=== PATIENT | female | born 1950 | race Caucasian/White ===

== ENCOUNTER → 2016-05-22 | Outpatient (CLI) | payer OTHER ==
[~2016-05-22] MED LIST: EXCEDRIN EXTRA STREN PO; NICODERM C21 MG/24 H TOP; NORCO1 TA1 PO; TRAMADOL HCL50 MG PO; VISTARIL25 MG PO
--- NOTE | 2016-05-22 12:56 | DIAGNOSTIC IMAGING REPORT ---
PROCEDURE: CT THORAX ABD PELVIS W/CONT INDICATION: LUNG CA, follow-up TECHNIQUE: 75 ml of Isovue 300 injected intravenously and axial images were obtained of the entire thorax, abdomen, and pelvis with sagittal and coronal reformations. COMPARISON: CT chest/abdomen/pelvis 02/17/2016 FINDINGS: THORAX: Hyperinflation with moderate emphysema. Right upper lobectomy with stable right hemithorax volume loss. Stable left major fissure focal thickening. Progression of the right paratracheal lymph node which measures 2.5 cm short axis (previously 2 cm ). No effusion. Minor coronary atherosclerosis. Heart size is normal. No pericardial effusion. Mild degenerative changes of the spine. ABDOMEN: Stable mild dilation of the common bile duct (7 mm) and pancreatic duct, without evidence of a distal calculus, mass or inflammatory changes. Liver gallbladder, spleen, adrenal glands and kidneys are normal. Moderate atherosclerosis of the aorta. Moderate diverticulosis of the transverse and descending colon. Severe levoconvex scoliosis with severe degenerative changes of the spine. PELVIS: Moderate sigmoid diverticulosis. Normal appendix. Uterus, adnexa and bladder are unremarkable. Stable fat-containing right femoral hernia. No change in the bilobed right pelvic cystic mass measuring approximate 3.1 x 2.3 x 1.9 cm. Immediately caudal, there is a stable 4.3 x 2 cm right pelvic sidewall/ extra iliac chain lymph node. Right hip ORIF through pathological fracture with evidence of healing but fracture line is still visible. No evidence of increased bony destruction. IMPRESSION: 1. Right upper lobectomy with progression of right paratracheal adenopathy 2. Diverticulosis 3. Stable right pelvic cystic mass and the right pelvic adenopathy 4. Stable right femoral fat-containing hernia 5. Right hip ORIF through pathological fracture with evidence of healing and no evidence of increased osseous destruction. All CT scans at this facility use dose modulation, iterative reconstruction, and/or weight-based dosing when appropriate to reduce radiation dose to as low as reasonably achievable.
--- NOTE | 2016-05-22 13:36 | DIAGNOSTIC IMAGING REPORT ---
PROCEDURE: CT LOWER EXT W/CONTRAST-RIGHT INDICATION: LUNG CA TECHNIQUE: Axial scans with coronal and sagittal re-formations. COMPARISON: CT chest/abdomen/pelvis 02/17/2016 FINDINGS: Right hip ORIF with intramedullary nail and two DHS screws through a pathological fracture. There is some healing present but fracture line is still visible. No evidence of increased bony destruction. Mild bilateral hip degenerative changes. Fat-containing right femoral hernia is stable. Partially visualized right pelvic cystic mass with stable right pelvic wall mass/ adenopathy. IMPRESSION: 1. Right hip ORIF through pathological fracture. Evidence of healing but fracture line is still present. No evidence of increased osseous destruction.
== END ==
LOC: CT SRH 11:29
DX: J43.9 Emphysema, unspecified (principal); R59.9 Enlarged lymph nodes, unspecified; K57.30 Diverticulosis of large intestine without perforation or abscess without bleeding; Z85.118 Personal history of other malignant neoplasm of bronchus and lung; Z98.890 Other specified postprocedural states

== ENCOUNTER 2016-05-23 08:40 | Outpatient (CLI) | payer OTHER ==
--- NOTE | 2016-05-23 10:40 | DIAGNOSTIC IMAGING REPORT ---
PROCEDURE: MR BRAIN W/WO CONTRAST INDICATION: LUNG CA TECHNIQUE: Multiplanar multisequence MRI imaging of the brain without contrast. Post administration of 13 ml ProHance gadolinium based IV contrast, three plane T1 fat sat sequences were obtained. COMPARISON: None available FINDINGS: The midline structures are normally formed. The ventricular system is normal in size. Basal cisterns are patent. Flow voids in the major intracranial vessels are normal. No vascular malformations seen post contrast. Signal throughout the pratt and white matter demonstrates a few scattered areas of increased signal which probably represents small vessel ischemic disease. There is a focal area of hemosiderin deposition in the left occipital lobe which probably represents a cavernous malformation. No restricted diffusion to suggest acute ischemia. No evidence of acute or chronic intraparenchymal or extra-axial hemorrhage. No mass, mass effect, or midline shift. No suspicious enhancement. Normal signal in the visible bones. The sinuses are normally aerated. Visible extracranial soft tissues including the orbits are normal. IMPRESSION: 1. Small-vessel ischemic disease and a left occipital cavernous malformation. 2. No abnormal enhancement.
== END 2016-05-23 23:00 ==
LOC: MRI SRH 08:40
DX: C34.90 Malignant neoplasm of unspecified part of unspecified bronchus or lung (principal); G93.89 Other specified disorders of brain

== ENCOUNTER 2016-06-20 10:25 | Emergency (ER) | payer OTHER ==
--- NOTE | 2016-06-20 13:41 | DIAGNOSTIC IMAGING REPORT ---
PROCEDURE: CT ABD/PELVIS WITH CONTRAST CLINICAL INDICATION: Left lower quadrant pain TECHNIQUE: 100 ml of Isovue 300 were injected intravenously and axial images were obtained of the entire abdomen and pelvis with sagittal and coronal reformations. COMPARISON: CT chest/abdomen/pelvis 05/22/2016 FINDINGS: ABDOMEN: Lung bases are clear. Heart size is normal. Stable common bile duct at the upper limits of normal, 7 mm. Stable dilation of the pancreatic, 3 mm. No evidence of a pancreatic mass, inflammatory process or distal calculus. Liver, gallbladder, spleen, adrenal glands and the kidneys are normal. Moderate atherosclerosis of the aorta. Moderate diverticulosis of the transverse and descending colon. Nonspecific bowel gas pattern. Severe levoconvex scoliosis with degenerative changes. PELVIS: Normal appendix. Moderate sigmoid diverticulosis with wall thickening and minor adjacent inflammatory changes of the proximal sigmoid colon consistent with diverticulitis. There is no of free air or abscess. The uterus and bladder are unremarkable. Right hip ORIF. Stable fat-containing right femoral hernia. Stable 2.3 x 1.9 cm right pelvic cystic mass and slight progression of 4.5 x 2.3 cm right external iliac chain lymph node. IMPRESSION: 1. Moderate diverticulosis from the transverse to the sigmoid colon with findings suggestive of diverticulitis of the proximal sigmoid colon. No abscess or free air. 2. Stable right pelvic cystic mass but slight progression of right external iliac adenopathy. Recommend pelvic ultrasound 3. Stable fat-containing right femoral hernia 4. Right hip ORIF 5. Results discussed with Dr. Mckeon All CT scans at this facility use dose modulation, iterative reconstruction, and/or weight-based dosing when appropriate to reduce radiation dose to as low as reasonably achievable.
--- NOTE | 2016-06-20 14:37 | ED NURSING NOTES ---
Clinical Report - Nurses [facility] [address] [place] [place] [address] 06/20/2016 10:25 [id number] Triage time 10:36. Acuity: LEVEL 3. Chief Complaint: ABDOMINAL PAIN. Alert. No acute distress. GRACE COMA SCORE: Grace Coma Scale: 15- eyes open spontaneously (4); best verbal response- oriented x 4 (5); best motor response- obeys commands (6). --10:43 Janet Jackson R.N. 10:36 06/20/16. BP: 120/88. HR: 99. RR: 18. O2 saturation: 99% on room air. Temp: 98.5 F (oral). --10:43 Janet Jackson R.N. Weight: 58.5 kg stated. Height/Length: 62 inches Per Patient. BMI: 23.6. --10:43 Janet Jackson R.N. Medications TraMADol HCl Oral. --10:38 Janet Jackson R.N. Excedrin Extra Strength Oral. --10:38 Janet Jackson R.N. Medication/allergy information source: the patient. --10:43 Janet Jackson R.N. Allergies STEROIDS. --10:38 Janet Jackson R.N. History Arrived by private vehicle. Historian: patient. Unaccompanied. Primary physician (Lashanda). Onset. (3 days). Describes the quality as cramping and ( intermittent). Relates location as in the left abdomen. SOCIAL HX: Light tobacco smoker- less than 1/2 a pack per day. No alcohol use or drug use. FALL RISK ASSESSMENT: Fall risk assessment completed. No fall risk identified. FUNCTIONAL ASSESSMENT: Functional assessment: no impairments noted. LEARNING NEEDS ASSESSMENT: The learning needs assessment revealed no barriers. --10:43 Janet Jackson R.N. PROBLEMS: Cancer. Diverticulosis. Diverticulitis. --10:40 Janet Jackson R.N. ADDITIONAL SURGERIES: Leg. Lobectomy of lung. --10:42 Janet Jackson R.N. Assessment GENERAL / NEURO / PSYCH: Alert. Oriented X 4. Appears in no acute distress. Patient appears calm and cooperative. RESPIRATORY: Respirations not labored. SKIN: Skin is warm and dry. --10:43 Janet Jackson R.N. Interventions ID band on patient. To treatment room. --10:43 Janet Jackson R.N. PHYSICAL ASSESSMENT 10:44 06/20/16. Ambulatory to room. Patient gowned. GENERAL / NEURO / PSYCH: Alert. Oriented X 4. Appears in no acute distress. RESPIRATORY: Respirations not labored. SKIN: Skin is warm and dry. --10:44 Janet Jackson R.N. NURSING PROGRESS NOTES 10:44 06/20/16. Patient gowned. Head of bed elevated. Call light placed in reach. Side rails up x 1. Bed placed in lowest position. Brakes of bed on. --10:44 Janet Jackson R.N. 11:08 06/20/2016 Site #1 started via IV in the right hand with an 20g angiocath, with aseptic technique and good blood return; one attempt. Saline lock flushed with 10 mL saline. --11:18 Janet Jackson R.N. Checked patient name and birthdate: patient confirmed. Blood samples drawn from the left antecubital space with syringe and 23g butterfly by tech per protocol ; labeled in presence of the patient and sent to lab: rainbow set: cardiac enzymes (1st set). --11:20 Casimiro Hewtit 12:50. :patient confirmed. Clean catch urine collected; sample sent to lab. Specimen labeled in the presence of the patient (pt ambulated to the BR and back without difficulty, more urine sent to lab). --12:51 Janet Jackson R.N. 13:54 06/20/2016 Flagyl (MetroNIDAZOLE) PO Tablets 500 mg given. Allergies verified and confirmed 5 rights. --13:54 Janet Jackson R.N. 13:54 06/20/2016 Levofloxacin PO Tablets 500 mg given. Allergies verified and confirmed 5 rights. --13:54 Janet Jackson R.N. Patient walked to CT. Patient walked back to ED from CT with tech. --13:55 Janet Jackson R.N. Reassessment after procedure. She is calm and resting quietly. Overall patient status is the same- she states feels the same. SKIN: Skin is warm and dry. --13:56 Janet Jackson R.N. 13:56 06/20/16. BP: 128/84. HR: 87. RR: 16. O2 saturation: 97% on room air. Pain level now: 07/07. --13:56 Janet Jackson R.N. The patient is sleeping. --14:29 Ramone Walter R.N. 14:55. The patient is calm and resting quietly. Overall patient status is the same- she states feels the same. SKIN: Skin is warm and dry. --15:46 Janet Jackson R.N. DISPOSITION / DISCHARGE Departure time: 1455. Condition at departure: improved and stable. No learning barriers present. Discharge instructions provided and reviewed with the patient. Patient verbalized understanding. Written instructions provided in [employer]. ( Rx for Levaquin and Flagyl called to [facility] as requested by pt). The patient was discharged home and unaccompanied at time of discharge. She left the Emergency Department ambulatory and via private vehicle. Patient driving. FALL RISK ASSESSMENT: Fall risk assessment completed. No fall risk identified. --15:45 Janet Jackson R.N. 14:58 06/20/16. BP: 126/76. HR: 89. RR: 16. O2 saturation: 99% on room air. Pain level now: 07/07. --15:45 Janet Jackson R.N. 14:55 06/20/2016 Site #1 removed upon discharge. Catheter intact. Bandaid applied. --15:45 Janet Jackson R.N. Locked/Released at 06/20/2016 15:48 by Janet Jackson R.N.
--- NOTE | 2016-06-20 14:37 | ED ORDER SUMMARY ---
..... Patient: MARIA C ORO OrderSheet [facility] VisitID: [id number] [place] [address] 66y, F Registration Date/Time: 06/20/2016 ORDER SHEET Weight: 58.5 kg (stated) Allergies: STEROIDS GENERAL ORDERS: CBC w Diff Urgent (11:13 06/20/2016 José Miguel Agustin) (Ack 11:14 Kd) (11:19 Aubree R.N.) CMP Urgent (11:13 06/20/2016 José Miguel Agustin) (Ack 11:14 Kd) (11:19 Aubree R.N.) UA-Culture if indicated Urgent (11:13 06/20/2016 José Miguel Agustin) (Ack 11:14 Kd) (13:54 Aubree R.N.) Amylase Urgent (11:06/20/2016 José Miguel Agustin) (Ack 11:14 Kd) (11:19 Aubree R.N.) Lipase Urgent (11:13 06/20/2016 José Miguel Agustin) (Ack 11:14 Kd) (11:19 Aubree R.N.) CT Abd/Pel w Cont (No) (12/0.7) Urgent (12:36 06/20/2016 José Miguel Agustin) (Ack 12:39 LNations ER Tech1) (13:05 Kd) MEDICATION ORDERS: Flagyl PO 500 mg (NOW) (13:40 06/20/2016 José Miguel Agustin) (Ack 13:48 Aubree R.N.) (13:54 Aubree R.N.) Levofloxacin PO 500 mg (NOW) (13:40 06/20/2016 José Miguel Agustin) (Ack 13:48 Aubree R.N.) (13:54 Aubree R.N.) IV FLUIDS: IV Saline Lock (11:13 06/20/2016 José Miguel Agustin) (11:18 Aubree R.N.) ORDER SHEET NOTES: [Electronically signed by Robert Mckeon Dr. (14:45 06/20/2016)] [Electronically signed by Janet Jackson R.N. (15:48 06/20/2016)] [Electronically locked/signed by Janet Jackson R.N. (15:48 06/20/2016)]
--- NOTE | 2016-06-20 14:37 | ED CLINICAL REPORT ---
Clinical Report - Physicians/Mid Levels [facility] [address] [place] [address] 06/20/2016 10:25 Patient: MARIA C ORO Time Seen: 11:03; initial patient contact. Arrived- By private vehicle. Historian- patient. HISTORY OF PRESENT ILLNESS Chief Complaint: ABDOMINAL PAIN. At its maximum, severity described as moderate. When seen in the E.D., severity described as mild. It is described as cramping. No radiation. It is described as located in the left lower quadrant. This started about 3 days ago and is still present. It was gradual in onset. No nausea, loss of appetite, vomiting or diarrhea. Similar symptoms previously: Several times. Recent medical care: Not recently seen/assessed. REVIEW OF SYSTEMS The patient has had constipation. No difficulty with urination, pain with urination, urinary frequency, bloody stools or fever. No chills. All systems otherwise negative, except as recorded above. PAST HISTORY Cancer. Diverticulosis. Diverticulitis. SURGERIES: Leg. Lobectomy of lung. SOCIAL HISTORY Current every day smoker. No alcohol use or drug use. ADDITIONAL NOTES The nursing notes have been reviewed with agreement regarding the chief complaint, PMH and patient medications and allergies. PHYSICAL EXAM Appearance: Alert. Oriented X3. No acute distress. ENT: Pharynx normal. CVS: Normal heart rate and rhythm. Heart sounds normal. Respiratory: No respiratory distress. Breath sounds normal. Abdomen: Soft. Mild tenderness in the left lower quadrant with guarding present. No rebound tenderness. Bowel sounds normal. No organomegaly. No mass. Back: Normal inspection. No CVA tenderness. Skin: Normal skin color. No rash. Extremities: No lower extremity edema. Neuro: Oriented X 3. LABS, X-RAYS, AND EKG Abdominal CT: 1. Moderate diverticulosis from the transverse to the sigmoid colon with findings suggestive of diverticulitis of the proximal sigmoid colon. No abscess or free air. 2. Stable right pelvic cystic mass but slight progression of right external iliac adenopathy. Recommend pelvic ultrasound 3. Stable fat-containing right femoral hernia 4. Right hip ORIF. Study type: abdomen and pelvis. Abdominal CT performed with IV contrast. The study was interpreted by the radiologist and discussed with the radiologist. Interpretation time: 13:41. Laboratory Tests: UA-Culture if indicated: (NATHAN: 06/20/2016 10:45) ( [facility] [place] 06/[place] 12:11) Final results Test Result Flag Units (Reference) URINE COLOR YELLOW URINE APPEARANCE SL CLOUDY URINE GLUCOSE TRACE (NEGATIVE) URINE BILIRUBIN 1+ (NEGATIVE) URINE BILIRUBIN ICTOTEST POSITIVE (NEGATIVE) URINE KETONE TRACE (NEGATIVE) URINE SPECIFIC GRAVITY 1.025 (1.010-1.030) URINE PH 5.5 (5.0-8.0) URINE PROTEIN 2+ (NEGATIVE) URINE UROBILINOGEN 1.0 EU/dL (0.2-1.0) URINE NITRITE NEGATIVE (NEGATIVE) URINE BLOOD TRACE-LYSED (NEGATIVE) URINE LEUK ESTERASE POSITIVE (NEGATIVE) URINE RBC 0-1 rbc/hpf (0-1) URINE WBC 15-25 wbc/hpf (0-1) URINE EPITHELIAL CELLS 5-10 EPI/hpf (0-5) URINE BACTERIA TRACE (<1+) (NONE SEEN) URINE COMMENT CULTURE INDICATED UNSPUN MICROSCOPICURINE CULTURES ARE SET-UP BASED ON THE FOLLOWING CRITERIA:POSITIVE NITRITEPOSITIVE LEUKOCYTE ESTERASEGREATER THAN 10 WHITE BLOOD CELLSMODERATE (2+) OR GREATER BACTERIA CBC w Diff: (NATHAN: 06/20/2016 11:17) ( [facility] [place] [place] 06/20/2016 11:31) Final results Test Result Flag Units (Reference) WHITE BLOOD COUNT 8.6 K/uL (4.5-11.5) RED BLOOD COUNT 4.48 M/uL (4.00-5.20) HEMOGLOBIN 12.4 gm/dL (12.0-16.0) HEMATOCRIT 37.7 % (36.0-46.0) MEAN CELL VOLUME 84 fL (80-100) MEAN CORPUSCULAR HGB 28 pg (26-34) MEAN CORPUSCULAR HGB CONC 33 g/dL (31-37) RED CELL DISTRIBUTION WIDTH 18.3 H % (11.6-14.8) PLATELET COUNT 328 K/uL (150-400) NEUTROPHIL % 70.8 % (50-75) LYMPH % 16.6 L % (25-40) MONO % 9.5 % (3-14) EOSINOPHIL % 2.2 % (0-4) BASOPHIL % 0.9 % (0-2) CMP: (NATHAN: 06/20/2016 11:17) ( MsgRcvd 06/20/2016 11:41) Final results Test Result Flag Units (Reference) GLUCOSE 91 mg/dL (70-110) BUN 12 mg/dL (7-18) CREATININE 0.7 mg/dL (0.6-1.3) Estimated GFR >60 mL/min Estimated GFR- >60 mL/min Note: Persistent reduction over 3 months in eGFR<60 mL/min/1.73 m2 defines CKD. Patients with eGFR values>=60 mL/min/1.73 m2 may also have CKD if evidence ofpersistent proteinuria. Additional information may be foundat www.[email or web address].org. SODIUM 142 mmol/L (136-145) POTASSIUM 3.8 mmol/L (3.5-5.1) CHLORIDE 105 mmol/L (98-107) CARBON DIOXIDE 24 mmol/L (21-32) CALCIUM 8.7 mg/dL (8.5-10.1) TOTAL PROTEIN 7.2 g/dL (6.4-8.2) ALBUMIN 2.8 L g/dL (3.3-5.0) BILIRUBIN, TOTAL 0.4 mg/dL (0.0-1.0) ALKALINE PHOSPHATASE 122 H U/L (46-116) AST (SGOT) 13 L U/L (15-37) ALT (SGPT) 10 L U/L (12-78) LIPASE 95 U/L (73-393) AMYLASE 51 U/L (25-115) . PROGRESS AND PROCEDURES Disposition: Discharged home in good and improved condition. Condition: good. CLINICAL IMPRESSION Acute diverticulitis of the colon. No perforation, bleeding or abscess. INSTRUCTIONS Drink plenty of fluids. Your Current Medications: CONTINUE TAKING THE FOLLOWING MEDICATIONS: Excedrin Extra Strength Oral. TraMADol HCl Oral. Prescription Medications: Levaquin 500 mg: take 1 tab orally every day for 6 days. No refills. Substitution is permissible. (Start on 06/21/16) Flagyl 500 mg: Take 1 tablet orally every 8 hours for 7 days. No refill. Substitution is permissible Follow-up: Follow up with your doctor in about two days. Call for an appointment. Screening today revealed the patient's blood pressure to be in the pre-hypertensive range. The patient should follow up with a primary care provider for blood pressure management. (Electronically signed by Robert Mckeon Dr. 06/20/2016 14:45)
--- NOTE | 2016-06-20 14:37 | ED NURSING NOTES ---
Clinical Report - Nurses [facility] [address] [place] [address] 06/20/2016 10:25 [id number] Triage time 10:36. Acuity: LEVEL 3. Chief Complaint: ABDOMINAL PAIN. Alert. No acute distress. GRACE COMA SCORE: Grace Coma Scale: 15- eyes open spontaneously (4); best verbal response- oriented x 4 (5); best motor response- obeys commands (6). --10:43 Janet Jackson R.N. 10:36 06/20/16. BP: 120/88. HR: 99. RR: 18. O2 saturation: 99% on room air. Temp: 98.5 F (oral). --10:43 Janet Jackson R.N. Weight: 58.5 kg stated. Height/Length: 62 inches Per Patient. BMI: 23.6. --10:43 Janet Jackson R.N. Medications TraMADol HCl Oral. --10:38 Janet Jackson R.N. Excedrin Extra Strength Oral. --10:38 Janet Jackson R.N. Medication/allergy information source: the patient. --10:43 Janet Jackson R.N. Allergies STEROIDS. --10:38 Janet Jackson R.N. History Arrived by private vehicle. Historian: patient. Unaccompanied. Primary physician (Lashanda). Onset. (3 days). Describes the quality as cramping and ( intermittent). Relates location as in the left abdomen. SOCIAL HX: Light tobacco smoker- less than 1/2 a pack per day. No alcohol use or drug use. FALL RISK ASSESSMENT: Fall risk assessment completed. No fall risk identified. FUNCTIONAL ASSESSMENT: Functional assessment: no impairments noted. LEARNING NEEDS ASSESSMENT: The learning needs assessment revealed no barriers. --10:43 Janet Jackson R.N. PROBLEMS: Cancer. Diverticulosis. Diverticulitis. --10:40 Janet Jackson R.N. ADDITIONAL SURGERIES: Leg. Lobectomy of lung. --10:42 Janet Jackson R.N. Assessment GENERAL / NEURO / PSYCH: Alert. Oriented X 4. Appears in no acute distress. Patient appears calm and cooperative. RESPIRATORY: Respirations not labored. SKIN: Skin is warm and dry. --10:43 Janet Jackson R.N. Interventions ID band on patient. To treatment room. --10:43 Janet Jackson R.N. PHYSICAL ASSESSMENT 10:44 06/20/16. Ambulatory to room. Patient gowned. GENERAL / NEURO / PSYCH: Alert. Oriented X 4. Appears in no acute distress. RESPIRATORY: Respirations not labored. SKIN: Skin is warm and dry. --10:44 Janet Jackson R.N. NURSING PROGRESS NOTES 10:44 06/20/16. Patient gowned. Head of bed elevated. Call light placed in reach. Side rails up x 1. Bed placed in lowest position. Brakes of bed on. --10:44 Janet Jackson R.N. 11:08 06/20/2016 Site #1 started via IV in the right hand with an 20g angiocath, with aseptic technique and good blood return; one attempt. Saline lock flushed with 10 mL saline. --11:18 Janet Jackson R.N. Checked patient name and birthdate: patient confirmed. Blood samples drawn from the left antecubital space with syringe and 23g butterfly by tech per protocol ; labeled in presence of the patient and sent to lab: rainbow set: cardiac enzymes (1st set). --11:20 Casimiro Hewitt 12:50. :patient confirmed. Clean catch urine collected; sample sent to lab. Specimen labeled in the presence of the patient (pt ambulated to the BR and back without difficulty, more urine sent to lab). --12:51 Janet Jackson R.N. 13:54 06/20/2016 Flagyl (MetroNIDAZOLE) PO Tablets 500 mg given. Allergies verified and confirmed 5 rights. --13:54 Janet Jackson R.N. 13:54 06/20/2016 Levofloxacin PO Tablets 500 mg given. Allergies verified and confirmed 5 rights. --13:54 Janet Jackson R.N. Patient walked to CT. Patient walked back to ED from CT with tech. --13:55 Janet Jackson R.N. Reassessment after procedure. She is calm and resting quietly. Overall patient status is the same- she states feels the same. SKIN: Skin is warm and dry. --13:56 Janet Jackson R.N. 13:56 06/20/16. BP: 128/84. HR: 87. RR: 16. O2 saturation: 97% on room air. Pain level now: 07/07. --13:56 Janet Jackson R.N. The patient is sleeping. --14:29 Ramone Walter R.N. 14:55. The patient is calm and resting quietly. Overall patient status is the same- she states feels the same. SKIN: Skin is warm and dry. --15:46 Janet Jackson R.N. DISPOSITION / DISCHARGE Departure time: 1455. Condition at departure: improved and stable. No learning barriers present. Discharge instructions provided and reviewed with the patient. Patient verbalized understanding. Written instructions provided in [place]. ( Rx for Levaquin and Flagyl called to [facility] as requested by pt). The patient was discharged home and unaccompanied at time of discharge. She left the Emergency Department ambulatory and via private vehicle. Patient driving. FALL RISK ASSESSMENT: Fall risk assessment completed. No fall risk identified. --15:45 Janet Jackson R.N. 14:58 06/20/16. BP: 126/76. HR: 89. RR: 16. O2 saturation: 99% on room air. Pain level now: 07/07. --15:45 Janet Jackson R.N. 14:55 06/20/2016 Site #1 removed upon discharge. Catheter intact. Bandaid applied. --15:45 Janet Jackson R.N. Locked/Released at 06/20/2016 15:48 by Janet Jackson R.N.
--- NOTE | 2016-06-20 14:37 | ED ORDER SUMMARY ---
..... Patient: MARIA C ORO OrderSheet [facility] VisitID: [id number] [place] [address] 66y, F Registration Date/Time: 06/20/2016 ORDER SHEET Weight: 58.5 kg (stated) Allergies: STEROIDS GENERAL ORDERS: CBC w Diff Urgent (11:13 06/20/2016 José Miguel Agustin) (Ack 11:14 Kd) (11:19 Aubree R.N.) CMP Urgent (11:13 06/20/2016 José Miguel Agustin) (Ack 11:14 Kd) (11:19 Aubree R.N.) UA-Culture if indicated Urgent (11:13 06/20/2016 José Miguel Agustin) (Ack 11:14 Kd) (13:54 Aubree R.N.) Amylase Urgent (11:06/20/2016 José Miguel Agustin) (Ack 11:14 Kd) (11:19 Aubree R.N.) Lipase Urgent (11:13 06/20/2016 José Miguel Agustin) (Ack 11:14 Kd) (11:19 Aubree R.N.) CT Abd/Pel w Cont (No) (12/0.7) Urgent (12:36 06/20/2016 José Miguel Agustin) (Ack 12:39 LNations ER Tech1) (13:05 Kd) MEDICATION ORDERS: Flagyl PO 500 mg (NOW) (13:40 06/20/2016 José Miguel Agustin) (Ack 13:48 Aubree R.N.) (13:54 Aubree R.N.) Levofloxacin PO 500 mg (NOW) (13:40 06/20/2016 José Miguel Agustin) (Ack 13:48 Aubree R.N.) (13:54 Aubree R.N.) IV FLUIDS: IV Saline Lock (11:13 06/20/2016 José Miguel Agustin) (11:18 Aubree R.N.) ORDER SHEET NOTES: [Electronically signed by Robert Mckeon Dr. (14:45 06/20/2016)] [Electronically signed by Janet Jackson R.N. (15:48 06/20/2016)] [Electronically locked/signed by Janet Jackson R.N. (15:48 06/20/2016)]
--- NOTE | 2016-06-20 15:48 | ED DISCHARGE INSTRUCTIONS ---
Patient: MARIA C ORO General Instructions [facility] VisitID: [id number] [place] [address] 66y, F Registration Date/Time: 06/20/2016 Acute diverticulitis of the colon. No perforation, bleeding or abscess. INSTRUCTIONS Drink plenty of fluids. Your Current Medications: CONTINUE TAKING THE FOLLOWING MEDICATIONS: Excedrin Extra Strength Oral. TraMADol HCl Oral. Prescription Medications: Levaquin 500 mg: take 1 tab orally every day for 6 days. No refills. Substitution is permissible. (Start on 06/21/16) Flagyl 500 mg: Take 1 tablet orally every 8 hours for 7 days. No refill. Substitution is permissible Follow-up: Follow up with your doctor in about two days. Call for an appointment. Screening today revealed the patient's blood pressure to be in the pre-hypertensive range. The patient should follow up with a primary care provider for blood pressure management. ADDITIONAL INFORMATION Diverticulitis Some people develop pouches along the wall of the colon as they get older. The pouches,called diverticuli, usually cause no symptoms. If the pouches become blocked, an infection may occur known as diverticulitis. This causes lower abdominal pain and fever. If not treated, it can become a serious condition, causing an abscess to form inside the pouch. The abscess may block the instestinal tract even or rupture, spreading infection throughout the abdomen. When treatment is started early, oral antibiotics alone may be enough to cure diverticulitis. This method is tried first. However, if you do not improve or if your condition worsens while you are trying oral antibiotics, it will be necessary to admit you to the hospital for IV antibiotics. Severe cases may require surgery. Home care The following guidelines will help you care for your diverticulitis at home: During the acute illness, rest and follow a low-fiber diet: Foods to Include: flake cereal, mashed potatoes, pancakes, waffles, pasta, white bread, rice, applesauce, bananas, eggs, meat, fish, poultry, tofu, cooked vegetables. Take antibiotics exactly as directed. Do not miss any doses or stop taking the medication, even if you feel better. Monitor your temperature and report any rising temperature to your doctor. Preventing future attacks Once you have had an episode of diverticulitis, you are at risk of having a recurrence. After you have recovered from this episode, you may be able to reduce your risk by eating a high-fiber diet (2035 gm/day of fiber). This cleans out the colon pouches that already exist and prevent new ones from forming. Foods high in fiber includes fresh fruits and edible peelings, raw or lightly cooked vegetables, whole grain cereals and breads, dried beans and peas, bran. Follow-up care Follow up with your doctor as advised or sooner if you are not improving in the nexttwo days. When to seek medical care Get prompt medical attention if any of the following occur: Fever of 100.4F (38C) or higher, or as directed by your health care provider Repeated vomiting or swelling of the abdomen Weakness, dizziness, light-headedness Increasing abdominal pain that becomes severe or spreads to your back Pain that moves to the right lower abdomen Rectal bleeding (red, black or maroon color of the stools) Unexpected vaginal bleeding Levofloxacin Oral tablet What is this medicine? LEVOFLOXACIN (cash espino) is a quinolone antibiotic. It is used to treat certain kinds of bacterial infections. It will not work for colds, flu, or other viral infections. How should I use this medicine? Take this medicine by mouth with a full glass of water. Follow the directions on the prescription label. This medicine can be taken with or without food. Take your medicine at regular intervals. Do not take your medicine more often than directed. Do not skip doses or stop your medicine early even if you feel better. Do not stop taking except on your doctor's advice. A special MedGuide will be given to you by the pharmacist with each prescription and refill. Be sure to read this information carefully each time. Talk to your lunch truck driver regarding the use of this medicine in children. While this drug may be prescribed for children as young as 6 months for selected conditions, precautions do apply. What side effects may I notice from receiving this medicine? Side effects that you should report to your doctor or health palliative care nurse practitioner as soon as possible: -allergic reactions like skin rash or hives, swelling of the face, lips, or tongue -changes in vision -confusion, nightmares or hallucinations -difficulty breathing -irregular heartbeat, chest pain -joint, muscle or tendon pain -pain or difficulty passing urine -persistent headache with or without blurred vision -redness, blistering, peeling or loosening of the skin, including inside the mouth -seizures -unusual pain, numbness, tingling, or weakness -vaginal irritation, discharge Side effects that usually do not require medical attention (report to your doctor or health palliative care nurse practitioner if they continue or are bothersome): -diarrhea -dry mouth -headache -stomach upset, nausea -trouble sleeping What may interact with this medicine? Do not take this medicine with any of the following medications: - arsenic trioxide - chloroquine - droperidol - medicines for irregular heart rhythm like amiodarone, disopyramide, dofetilide, flecainide, quinidine, procainamide, sotalol - some medicines for depression or mental problems like phenothiazines, pimozide, and ziprasidone This medicine may also interact with the following medications: - amoxapine -antacids - cisapride - dairy products - didanosine (ddI) buffered tablets or powder - haloperidol - multivitamins -NSAIDS, medicines for pain and inflammation, like ibuprofen or naproxen - retinoid products like tretinoin or isotretinoin - risperidone - some other antibiotics like clarithromycin or erythromycin - sucralfate - theophylline - warfarin What if I miss a dose? If you miss a dose, take it as soon as you remember. If it is almost time for your next dose, take only that dose. Do not take double or extra doses. Where should I keep my medicine? Keep out of the reach of children. Store at room temperature between 15 and 30 degrees C (59 and 86 degrees F). Keep in a tightly closed container. Throw away any unused medicine after the expiration date. What should I tell my health care provider before I take this medicine? They need to know if you have any of these conditions: cerebral disease irregular heartbeat kidney disease seizure disorder an unusual or allergic reaction to levofloxacin, other antibiotics or medicines, foods, dyes, or preservatives or trying to get breast-feeding What should I watch for while using this medicine? Tell your doctor or health palliative care nurse practitioner if your symptoms do not improve or if they get worse. Drink several glasses of water a day and cut down on drinks that contain caffeine. You must not get dehydrated while taking this medicine. You may get drowsy or dizzy. Do not drive, use machinery, or do anything that needs mental alertness until you know how this medicine affects you. Do not sit or stand up quickly, especially if you are an older patient. This reduces the risk of dizzy or fainting spells. This medicine can make you more sensitive to the sun. Keep out of the sun. If you cannot avoid being in the sun, wear protective clothing and use a sunscreen. Do not use sun lamps or tanning beds/booths. Contact your doctor if you get a sunburn. If you are a diabetic monitor your blood glucose carefully. If you get an unusual reading stop taking this medicine and call your doctor right away. Do not treat diarrhea with [id number] products. Contact your doctor if you have diarrhea that lasts more than 2 days or if the diarrhea is severe and watery. Avoid antacids, calcium, iron, and zinc products for 2 hours before and 2 hours after taking a dose of this medicine. Metronidazole Oral tablet What is this medicine? METRONIDAZOLE (me janis hooper) is an antiinfective. It is used to treat certain kinds of bacterial and protozoal infections. It will not work for colds, flu, or other viral infections. How should I use this medicine? Take this medicine by mouth with a full glass of water. Follow the directions on the prescription label. Take your medicine at regular intervals. Do not take your medicine more often than directed. Take all of your medicine as directed even if you think you are better. Do not skip doses or stop your medicine early. Talk to your lunch truck driver regarding the use of this medicine in children. Special care may be needed. What side effects may I notice from receiving this medicine? Side effects that you should report to your doctor or health palliative care nurse practitioner as soon as possible: allergic reactions like skin rash or hives, swelling of the face, lips, or tongue confusion, clumsiness difficulty speaking discolored or sore mouth dizziness fever, infection numbness, tingling, pain or weakness in the hands or feet trouble passing urine or change in the amount of urine redness, blistering, peeling or loosening of the skin, including inside the mouth seizures unusually weak or tired vaginal irritation, dryness, or discharge Side effects that usually do not require medical attention (report to your doctor or health palliative care nurse practitioner if they continue or are bothersome): diarrhea headache irritability metallic taste nausea stomach pain or cramps trouble sleeping What may interact with this medicine? Do not take this medicine with any of the following medications: alcohol or any product that contains alcohol amprenavir oral solution cisapride disulfiram dofetilide dronedarone paclitaxel injection pimozide ritonavir oral solution sertraline oral solution sulfamethoxazole-trimethoprim injection thioridazine ziprasidone This medicine may also interact with the following medications: cimetidine lithium other medicines that prolong the QT interval (cause an abnormal heart rhythm) phenobarbital phenytoin warfarin What if I miss a dose? If you miss a dose, take it as soon as you can. If it is almost time for your next dose, take only that dose. Do not take double or extra doses. Where should I keep my medicine? Keep out of the reach of children. Store at room temperature below 25 degrees C (77 degrees F). Protect from light. Keep container tightly closed. Throw away any unused medicine after the expiration date. What should I tell my health care provider before I take this medicine? They need to know if you have any of these conditions: anemia or other blood disorders disease of the nervous system fungal or yeast infection if you drink alcohol containing drinks liver disease seizures an unusual or allergic reaction to metronidazole, or other medicines, foods, dyes, or preservatives or trying to get breast-feeding What should I watch for while using this medicine? Tell your doctor or health palliative care nurse practitioner if your symptoms do not improve or if they get worse. You may get drowsy or dizzy. Do not drive, use machinery, or do anything that needs mental alertness until you know how this medicine affects you. Do not stand or sit up quickly, especially if you are an older patient. This reduces the risk of dizzy or fainting spells. Avoid alcoholic drinks while you are taking this medicine and for three days afterward. Alcohol may make you feel dizzy, sick, or flushed. If you are being treated for a sexually transmitted disease, avoid sexual contact until you have finished your treatment. Your sexual partner may also need treatment. You have been given the following additional information: Diverticulitis Levofloxacin Oral tablet Metronidazole Oral tablet (Electronically signed by Robert Mckeon Dr. 06/20/2016 14:45)
--- NOTE | 2016-06-20 15:49 | ED MAR SUMMARY ---
..... Medication Administration Record [facility] [address] [place] [address] Patient: MARIA C ORO Visit ID: [id number] 66y, F Weight: 58.5 kg Height/Length: 62 in BMI: 23.6 ALLERGIES: STEROIDS Given 13:06/20/2016 Janet Jackson R.N. Medication Administered: FLAGYL [PO] (METRONIDAZOLE), Dose: 500 mg Tablets PO. Medication Ordered: Flagyl PO 500 mg (NOW). Given 13:06/20/2016 Janet Jackson RMoncho Medication Administered: LEVOFLOXACIN [PO], Dose: 500 mg Tablets PO. Medication Ordered: Levofloxacin PO 500 mg (NOW).
--- NOTE | 2016-06-20 15:49 | ED MED RECONCILIATION SUMMARY ---
Patient: MARIA C ORO Medication Reconciliation Report [facility] VisitID: [id number] [place] [address] 66y, F Registration Date/Time: 06/20/2016 Weight: 58.5 kg Height/Length: 62 in. BMI: 23.6 ALLERGIES: STEROIDS The patient's Home Medications are listed below: CONTINUE TAKING THE FOLLOWING MEDICATIONS: Excedrin Extra Strength Oral TraMADol HCl Oral The source(s) of the original Home Medication information: patient The following Medications were given to the patient in the Emergency Department: Flagyl [PO] PO 500 mg, administered: 06/20/2016 1:54:00 PM Levofloxacin [PO] PO 500 mg, administered: 06/20/2016 1:54:00 PM The following Medications were prescribed to the patient: Levaquin 500 mg: take 1 tab orally every day for 6 days. No refills. Substitution is permissible.(Start on 06/21/16) -- Robert Mckeon Dr. Flagyl 500 mg: Take 1 tablet orally every 8 hours for 7 days. No refill. Substitution is permissible -- Robert Mckeon Dr.
--- NOTE | 2016-06-20 15:49 | ED MAR SUMMARY ---
..... Medication Administration Record [facility] [address] [place] [address] Patient: MARIA C ORO Visit ID: [id number] 66y, F Weight: 58.5 kg Height/Length: 62 in BMI: 23.6 ALLERGIES: STEROIDS Given 13:06/20/2016 Janet Jackson R.N. Medication Administered: FLAGYL [PO] (METRONIDAZOLE), Dose: 500 mg Tablets PO. Medication Ordered: Flagyl PO 500 mg (NOW). Given 13:06/20/2016 Janet Jackson RMoncho Medication Administered: LEVOFLOXACIN [PO], Dose: 500 mg Tablets PO. Medication Ordered: Levofloxacin PO 500 mg (NOW).
--- NOTE | 2016-06-20 15:49 | ED MED RECONCILIATION SUMMARY ---
Patient: MARIA C ORO Medication Reconciliation Report [facility] VisitID: [id number] [place] [address] 66y, F Registration Date/Time: 06/20/2016 Weight: 58.5 kg Height/Length: 62 in. BMI: 23.6 ALLERGIES: STEROIDS The patient's Home Medications are listed below: CONTINUE TAKING THE FOLLOWING MEDICATIONS: Excedrin Extra Strength Oral TraMADol HCl Oral The source(s) of the original Home Medication information: patient The following Medications were given to the patient in the Emergency Department: Flagyl [PO] PO 500 mg, administered: 06/20/2016 1:54:00 PM Levofloxacin [PO] PO 500 mg, administered: 06/20/2016 1:54:00 PM The following Medications were prescribed to the patient: Levaquin 500 mg: take 1 tab orally every day for 6 days. No refills. Substitution is permissible.(Start on 06/21/16) -- Robert Mckeon Dr. Flagyl 500 mg: Take 1 tablet orally every 8 hours for 7 days. No refill. Substitution is permissible -- Robert Mckeon Dr.
== END 2016-06-20 14:55 | disposition home or self-care (01) ==
LOC: ED SRH 10:25
DX: K57.32 Diverticulitis of large intestine without perforation or abscess without bleeding (principal)
CPT/HCPCS: 90004; 90100; 90469; 92235; 92530; 95059

== ENCOUNTER 2016-06-24 18:37 | Emergency (ER) | payer OTHER ==
--- NOTE | 2016-06-24 20:19 | DIAGNOSTIC IMAGING REPORT ---
PROCEDURE: XR CHEST 2 VIEW INDICATION: Chest pain. History of lung carcinoma and adenopathy. TECHNIQUE: PA and lateral views. COMPARISON: Compared to CT thorax on 05/22/2016 and chest x-ray on 06/08/2015. FINDINGS: Status post right upper lobectomy with mild parenchymal scarring at the lung bases. Lungs otherwise clear. There is a 4.0 cm right paratracheal enlarged lymph node. Mediastinum is otherwise normal. Heart is of normal size. Thorax is unchanged. IMPRESSION: 1. Mild bibasilar parenchymal scarring. 2. There is a persistent 4.0 cm right paratracheal enlarged lymph node. 3. Otherwise negative chest.
--- NOTE | 2016-06-24 20:37 | DIAGNOSTIC IMAGING REPORT ---
PROCEDURE: CTA THORAX WITH CONTRAST INDICATION: Chest pain. History of lung carcinoma. Elevated D-dimer (1.51). TECHNIQUE: 84 ml of Isovue 370 was injected intravenously and axial images were obtained of the entire thorax with 3D sagittal and coronal MIP reconstructions. COMPARISON: Compared to chest x-ray earlier in the day (06/24/2016) and CT thorax on 05/22/2016. FINDINGS: Mild bilateral upper lower lung parenchymal scarring. Lungs are otherwise clear. There is increasing size of a 3.4 cm right paratracheal lymph node (previously 2.8 cm) and a 2.5 cm right anterior mediastinal lymph node now measuring 2.5 cm (previously 2.2 cm). Pulmonary vessels are normal and there is no evidence of pulmonary embolus. Heart and mediastinum are of normal size. Tortuous aorta. Mild degenerative changes of the thoracic spine. Thorax is normal. IMPRESSION: 1. No evidence of pulmonary embolus. 2. Increasing mediastinal adenopathy 05/22/2016, consistent with neoplastic progression. 3. Findings discussed with Dr. Acuna. All CT scans at this facility use dose modulation, iterative reconstruction, and/or weight-based dosing when appropriate to reduce radiation dose to as low as reasonably achievable.
--- NOTE | 2016-06-24 20:43 | ED NURSING NOTES ---
Clinical Report - Nurses [facility] [address] [place] [address] 06/24/2016 18:36 Patient: MARIA C ORO TRIAGE Triage time 18:42 Jun 24 2016. Acuity: LEVEL 2. Chief Complaint: CHEST PAIN and DISCOMFORT. Alert. No acute distress. --18:52 Bernadette Perez R.N. 18:42 06/24/16. BP: 123/90. HR: 97. RR: 18. O2 saturation: 100%. Temp: 98.1 F. Pain level now 5/10. --18:52 Bernadette Perez R.N. Weight: 57.6 kg stated. Height/Length: 62 inches Per Patient. BMI: 23.2. --18:42 Bernadette Perez R.N. Medications Excedrin Extra Strength Oral bid. TraMADol HCl Oral 50 mg, 4x a day as needed. --18:45 Bernadette Perez R.N. Optivo IV Therapy/Immunotherapy. --18:47 Bernadette Perez R.N. PredniSONE Oral (started 06/02/16 completed about 2 weeks later. ). --18:48 Bernadette Perez R.N. Levofloxacin Oral 500 mg (started 06/20 for UTI). --18:50 Bernadette Perez R.N. Flagyl Oral 500 mg, 4x a day (diverticulitis). --18:50 Bernadette Perez R.N. Medication/allergy information source: the patient. --18:52 Bernadette Perez R.N. Allergies STEROIDS. ("not sure") --18:45 Bernadette Perez R.N. History Arrived by private vehicle. Historian: patient. Accompanied by family. Primary physician (Dr. Meyer/Dr. Bruno - Oncologist). ( "I feel like I have an elephant on my chest". Pt c/o dyspnea. Pt was walking in the house, no strenuous activity, came on around 1600 today. Pt on ABX for UTI. Recently had immunotherapy 5 weeks ago.). This started today. Treatment HEALTH ANALYST: None. PAST MEDICAL HX: Has not received seasonal influenza immunization. SOCIAL HX: Heavy tobacco smoker (cigarette)- less than 1 pack per day. No alcohol use or drug use. FALL RISK ASSESSMENT: Fall risk assessment completed. No fall risk identified. NUTRITIONAL RISK ASSESSMENT: The nutritional risk assessment revealed no deficiencies. FUNCTIONAL ASSESSMENT: Functional assessment: no impairments noted. LEARNING NEEDS ASSESSMENT: The learning needs assessment revealed no barriers. SKIN INTEGRITY ASSESSMENT: Skin integrity risk assessment completed. No skin integrity risk identified. --18:52 Bernadette Perez R.N. PROBLEMS: Cancer. Diverticulitis. Diverticulosis. --18:47 Bernadette Perez R.N. ADDITIONAL SURGERIES: Leg. Lobectomy of lung. --18:47 Bernadette Perez R.N. Interventions ID band on patient. To room. --18:52 Bernadette Perez R.N. PHYSICAL ASSESSMENT Ambulatory to room. --18:53 Bernadette Perez R.N. HEENT: Mucous membranes are abnormal. RESPIRATORY: Respirations not labored. CVS: Capillary refill less than 2 seconds. SKIN: Skin is warm and dry. --19:03 Bernadette Perez R.N. NURSING PROGRESS NOTES 18:52 06/24/2016 Aspirin PO 325 mg given. Allergies verified and confirmed 5 rights. --18:52 Bernadette Perez R.N. ( ASA 325mg given during triage.). --18:53 Bernadette Perez R.N. Care transferred and report given (NAYA Grullon). --19:03 Bernadette Perez R.N. Telemetry strip posted to chart. --19:14 Daysi Arguello, ER Tech1 19:29 06/24/16. BP: 110/80. HR: 87. O2 saturation: 97% on room air. Pain level now: 5/10. --19:32 Rosalinda Ortiz 19:32 06/24/16. ( Pre nitro past vitals, provider notified. Patient complains of blurred vision and eye pain, FAST exam done and negative. Provider notified.). --19:32 Rosalinda Ortiz 19:21 06/24/2016 Site #1 started via IV in the left antecubital space with an 20g angiocath; one attempt. Blood drawn: rainbow set. Labeled in the presence of the patient and sent to the lab. Saline lock flushed with 10 mL saline. --19:36 Rosalinda Ortiz 19:36 06/24/2016 Started bag #1 1000 mL IV Fluids IV NS (Saline); at 1000 mL/hr over 30 minute(s) via site #1 via IV pump. Allergies verified and confirmed 5 rights. IV patency established. IV site checked: no pain, redness, or swelling. IV flushed thoroughly pre- and post-medication administration. --19:36 Rosalinda Ortiz 19:37 06/24/2016 NITROGLYCERIN PASTE Topical Paste 1 inch. Applied to the left chest. Allergies verified and confirmed 5 rights. --19:37 Rosalinda Ortiz 19:37 06/24/16. BP: 126/78. HR: 88. RR: 20. O2 saturation: 98% on nasal cannula. --19:39 Rosalinda Ortiz 19:41 06/24/16. BP: 128/88. HR: 87. O2 saturation: 98% on room air. Pain level now: 09/06. --19:41 Rosalinda Ortiz Patient transported to CT by stretcher with tech. --19:43 Rosalinda Ortiz Patient returned from CT by stretcher with tech. (19:54 Jun 24 2016). --19:54 Rosalinda Ortiz 19:57 06/24/16. BP: 130/79. HR: 84. RR: 20. O2 saturation: 100% on room air. Pain level now: 07/07. --19:57 Rosalinda Ortiz 20:03 06/24/16. BP: 127/86. HR: 79. O2 saturation: 97% on room air. Pain level now: 07/07. --20:04 Rosalinda Ortiz 20:37 06/24/16. BP: 130/83. HR: 80. RR: 16. O2 saturation: 97%. Pain level now: 08/07. --20:39 AliM 20:46 06/24/16. BP: 126/80. HR: 81. RR: 20. O2 saturation: 97% on room air. Pain level now: 07/07. --20:46 Rosalinda Ortiz 21:08 06/24/2016 Dilaudid (HYDROmorphone HCl PF) IVP 0.5 mg given over 1 minute(s) via site #1. Allergies verified, confirmed 5 rights and sedative warning given to the patient. IV patency established. IV site checked: no pain, redness, or swelling. IV flushed thoroughly pre- and post-medication administration. IVP given by RN. --21:13 Rosalinda Ortiz 21:08 06/24/2016 Lovenox (Enoxaparin Sodium) Subcutaneous 60 mg given. Given in the right abdomen. Allergies verified and confirmed 5 rights. --21:13 Rosalinda Ortiz 21:09 06/24/2016 PROTONIX (Pantoprazole Sodium) IVP 40 mg given over 2 minute(s) via site #1. Allergies verified and confirmed 5 rights. IV patency established. IV site checked: no pain, redness, or swelling. IV flushed thoroughly pre- and post-medication administration. IVP given by RN. --21:14 Rosalinda Ortiz ( Patient assisted up to restroom). --21:14 Rosalinda Ortiz ( Patient to be transferred to [facility], plan of care discussed with patient and drop board man.). --21:15 Rosalinda Ortiz 21:53 06/24/2016 IV Fluids IV NS Discontinued: bag #1 discontinued upon transfer. Total amount infused: 800mL mL. IV patency established. IV site checked: no pain, redness, or swelling. IV flushed thoroughly. --21:58 AliM. DISPOSITION / DISCHARGE 21:26 06/24/16. BP: 118/91. HR: 90. RR: 20. O2 saturation: 98% on room air. Temp: 97.8 F (oral). Pain level now: 010. --21:28 Rosalinda Ortiz Condition at departure: stable. The goals identified in the patient's plan of care were met. FALL RISK ASSESSMENT: Fall risk assessment completed. No fall risk identified. --21:28 Rosalinda Ortiz Transferred to [facility]. Summary of care provided to transport team and transfer facility. Transported via stretcher by EMS with monitor and O2. Report was given to a nurse via a phone call. Report included patient's care, treatment, medications, reviewed medication reconcilliation, and condition (including any recent changes or anticipated changes). All questions were answered. Report was acknowledged and care was transferred. (Report given to Mel Ndiaye). Patient's personal items include: shirt, pants and purse; items were placed in belongings bag, given to the patient and transported with the patient. Collection of belongings was witnessed by 1 nurse. --21:57 Gennaro 21:53 06/24/2016 Site #[address] upon transfer; patent, no pain and no signs of infection or infiltration. Good blood return present; flushes easily. --21:58 Gennaro ( Charting reviewed by writing RN). --23:23 Rosalinda Ortiz. Locked/Released at 06/24/2016 23:23 by Rosalinda Ortiz,
--- NOTE | 2016-06-24 20:43 | ED ORDER SUMMARY ---
..... Patient: MARIA C ORO OrderSheet [facility] VisitID: [id number] [place] [address] 66y, F Registration Date/Time: 06/24/2016 ORDER SHEET Weight: 57.6 kg (stated) Allergies: STEROIDS GENERAL ORDERS: Chest 2V Urgent (18:49 06/24/2016 PHutchinson DO) (Ack 18:59 AMcQuoid ER Tech1) (19:21 RFay) Battery Test Engineer (Continuous) (18:50 06/24/2016 PHutchinson DO) (18:50 MWinterer R.N.) UA-Culture if indicated Urgent (18:50 06/24/2016 PHutchinson DO) (Ack 18:59 AMcQuoid ER Tech1) Cardiac Panel Stat (18:50 06/24/2016 PHutchinson DO) (18:59 AMcQuoid ER Tech1) BNP Urgent (18:50 06/24/2016 PHutchinson DO) (18:59 AMcQuoid ER Tech1) D-Dimer Urgent (18:50 06/24/2016 PHutchinson DO) (18:59 AMcQuoid ER Tech1) Amylase Urgent (18:50 06/24/2016 PHutchinson DO) (18:59 AMcQuoid ER Tech1) PT with INR Urgent (18:50 06/24/2016 PHutchinson DO) (18:59 AMcQuoid ER Tech1) TSH Urgent (18:50 06/24/2016 PHutchinson DO) (18:59 AMcQuoid ER Tech1) Lipase Urgent (18:50 06/24/2016 PHutchinson DO) (18:59 AMcQuoid ER Tech1) Oxygen (2 L/min) (NC) (18:50 06/24/2016 PHutchinson DO) (18:50 MWinterer R.N.) Pulse oximeter (18:50 06/24/2016 PHutchinson DO) (18:50 MWinterer R.N.) EKG - ER Stat (18:50 06/24/2016 PHutchinson DO) (18:50 MWinterer R.N.) Vitals (18:50 06/24/2016 PHutchinson DO) (18:51 MWinterer R.N.) CTA Thorax w Cont (No) (BUN and Cr normal) (elevated d-dimer; history of cancer) Urgent (19:31 06/24/2016 [facility]) (Ack 19:37 AMcQuoid ER Tech1) (19:56 Mahin) MEDICATION ORDERS: Aspirin PO 325 mg (NOW) (18:50 06/24/2016 [facility]) (18:52 SBalde R.N.) NitroGLYCERIN Paste Topical 1 in. (NOW, to CW) (19:14 06/24/2016 [facility]) (19:37 HSoule) Lovenox Subcut 60 mg (HIGH ALERT MEDICATION, NOW) (20:44 06/24/2016 [facility]) (Ack 20:45 HSoule) (21:13 HSoule) IV FLUIDS: IV NS : initial bolus 500 mL (1000 mL/hr), then 250 mL/hr for X2 (NOW) (18:50 06/24/2016 [facility]) (19:36 HSoule) Dilaudid IV 0.5 mg (HIGH ALERT MEDICATION, NOW) (20:43 06/24/2016 [facility]) (Ack 20:45 HSoule) (21:13 HSoule) Protonix IVP 40mg 40 mg (Mix in NS 10ml over 2min) (20:47 06/24/2016 [facility]) (Ack 21:08 HSoule) (21:14 HSoule) ORDER SHEET NOTES: [Electronically signed by Rosalinda Ortiz (23:23 06/24/2016)] [Electronically signed by Sal Acuna DO (14:02 06/25/2016)] [Electronically locked/signed by Rosalinda Ortiz (23:23 06/24/2016)]
--- NOTE | 2016-06-24 20:43 | ED CLINICAL REPORT ---
Clinical Report - Physicians/Mid Levels [facility] [address] [place] [address] 06/24/2016 18:36 Patient: MARIA C ORO Time Seen: 18:44. Arrived- By private vehicle. Historian- patient. HISTORY OF PRESENT ILLNESS Chief Complaint: CHEST PAIN. WEAKNESS. It is described as pressure and it is described as located in the central chest area. No radiation. At its maximum, severity described as moderate. When seen in the E.D., severity described as moderate. Modifying factors- worsened by exertion and movement. Relieved by rest. 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 It was gradual in onset and has been waxing/waning. Onset during light activity. The patient has had difficulty breathing and nausea and has experienced diaphoresis. No vomiting. Similar symptoms previously: Recent medical care: The patient was seen recently at this facility in the emergency department (seen at [facility] ED 4 days ago). Diagnosis: (diverticulitis, UTI). REVIEW OF SYSTEMS No fever, chills, pedal edema, calf pain or fainting episodes. No headache, sore throat, black stools, difficulty with urination or skin rash. No bloody stools. She has had generalized muscle aches, a cough and joint pain. She has had abdominal pain (several days ago). She has had pre-existing numbness of the right hand, right foot, left hand and left foot. All systems otherwise negative, except as recorded above. PAST HISTORY See nurses notes. Primary physician (Dr. Meyer; Dr. Bruno - Oncologist) Cancer. 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 Diverticulitis. UTI SURGERIES: Leg - Condylocephalic nailing of the right femur. Lobectomy of lung. No history of coronary artery disease, congestive heart failure, heart rhythm problems or pulmonary embolism. Surgeries: No prior cardiac procedures. Medications: Flagyl Oral 500 mg, 4x a day (diverticulitis). Levofloxacin Oral 500 mg (started 06/20 for UTI). PredniSONE Oral (started 06/02/16 completed about 2 weeks later. ). Optivo IV Therapy/Immunotherapy. Excedrin Extra Strength Oral bid. TraMADol HCl Oral 50 mg, 4x a day as needed. Allergies: STEROIDS. ("not sure"). SOCIAL HISTORY Smoker- current status unknown. No alcohol use or drug use. ADDITIONAL NOTES The nursing notes have been reviewed. PHYSICAL EXAM Vital Signs: 06/24/2016 18:42 BP: 123/90. HR: 97. RR: 18. O2 saturation: 100%. Temp: 98.1 F. Appearance: Alert. Oriented X3. Anxious. Patient in moderate distress. Eyes: Eyes normal inspection. No scleral icterus or pale conjunctivae. ENT: Pharynx normal. No pharyngeal erythema or tonsillar exudate. The mucous membranes are not dry. Neck: Normal inspection. Neck supple. CVS: Heart sounds normal. Pulses normal. Respiratory: No respiratory distress. Expiratory mild bilateral wheezes present. Chest nontender. Abdomen: Soft and nontender. No mass. Back: Normal external inspection. No CVA tenderness. Skin: Skin warm and dry. Normal skin color. Normal skin turgor. Extremities: Extremities exhibit normal ROM. No calf tenderness. No lower extremity edema. Neuro: Oriented X 3. No motor deficit. No sensory deficit. LABS, X-RAYS, AND EKG EKG: EKG time: (18:46). Normal sinus rhythm. Rate: 95. Normal P waves. Normal NEVAEH. Normal QRS complex. Nondiagnostic Q waves in lead II, III and aVF. Left axis deviation. Non-specific ST segment / T wave abnormalities. Non-specific T wave flattening in lead aVL. Non-specific T wave inversion in lead V1 and V2. Changes present when compared to prior EKG. (inverted T in V2 - new vs 03 JUN 2015). The study has been interpreted contemporaneously by me. The EKG appears to be a good tracing. Rhythm Strip #1: Regular rhythm. Narrow QRS complexes. Chest X-ray: (IMPRESSION: 1. Mild bibasilar parenchymal scarring. 2. There is a persistent 4.0 cm right paratracheal enlarged lymph node. 3. Otherwise negative chest.). Views: PA and lateral. Technique: good. The X-rays were interpreted contemporaneously by me. The X-rays were discussed with the radiologist (via PACS note). Laboratory Tests: CBC w Diff: (NATHAN: 06/24/2016 18:46) ( MsgRcvd 06/24/2016 19:04) Final results Test Result Flag Units (Reference) WHITE BLOOD COUNT 9.7 K/uL (4.5-11.5) RED BLOOD COUNT 4.59 M/uL (4.00-5.20) HEMOGLOBIN 12.5 gm/dL (12.0-16.0) HEMATOCRIT 38.8 % (36.0-46.0) MEAN CELL VOLUME 85 fL (80-100) MEAN CORPUSCULAR HGB 27 pg (26-34) MEAN CORPUSCULAR HGB CONC 32 g/dL (31-37) RED CELL DISTRIBUTION WIDTH 18.4 H % (11.6-14.8) PLATELET COUNT 393 K/uL (150-400) NEUTROPHIL % 61.4 % (50-75) LYMPH % 24.3 L % (25-40) MONO % 10.4 % (3-14) EOSINOPHIL % 3.3 % (0-4) BASOPHIL % 0.6 % (0-2) PT with INR: (NATHAN: 06/24/2016 18:46) ( MsgRcvd 06/24/2016 19:22) Final results Test Result Flag Units (Reference) INR 1.1 (0.8-1.2) Low Intensity Therapy: INR 1.5-2.0 PT range 18.5-23.1Mod.Intensity Therapy: INR 2.0-3.0 PT range 23.1-31.5High Intensity Therapy: INR 2.5-3.5 PT range 27.4-35.5High Intensity Therapy 2: INR 3.0-4.0 PT range 31.5-39.3 D-DIMER QUANTITATIVE 1.51 H ug/mLFEU (0.27-0.52) The primary value of this quantitative assay relates toits negative predictive value (i.e. exclusion) of pulmonaryembolism/deep vein thrombosis/DIC.Elevated levels of d-dimer may also occur with:, age, cancer, inflammation, liver disease,post-op, infection, hematoma, coronary disease, peripheralarteriopathy, bleeding disorders and thrombolytic treatment.Results should be correlated with other clinical andradiological data.Testing Methodology: Latex Immunoassay BNP: (NATHAN: 06/24/2016 18:46) ( [facility] 06/24/2016 19:34) Final results Test Result Flag Units (Reference) B-TYPE NATRIURETIC PEPTIDE 102 H pg/ml (5-100) Lipase: (NATHAN: 06/24/2016 18:46) ( [facility] 06/24/2016 19:24) Final results Test Result Flag Units (Reference) LIPASE 128 U/L (73-393) AMYLASE 51 U/L (25-115) THYROID STIMULATING HORMONE 3.041 uIU/mL (0.30-3.74) CHEM 13 PANEL: (NATHAN: 06/24/2016 18:46) ( [facility] 06/24/2016 19:22) Final results Test Result Flag Units (Reference) GLUCOSE 108 mg/dL (70-110) BUN 6 L mg/dL (7-18) CREATININE 0.8 mg/dL (0.6-1.3) Estimated GFR >60 mL/min Estimated GFR- >60 mL/min Note: Persistent reduction over 3 months in eGFR<60 mL/min/1.73 m2 defines CKD. Patients with eGFR values>=60 mL/min/1.73 m2 may also have CKD if evidence ofpersistent proteinuria. Additional information may be foundat www.kidney.org. SODIUM 145 mmol/L (136-145) POTASSIUM 3.7 mmol/L (3.5-5.1) CHLORIDE 107 mmol/L (98-107) CARBON DIOXIDE 25 mmol/L (21-32) CALCIUM 9.0 mg/dL (8.5-10.1) TOTAL PROTEIN 7.0 g/dL (6.4-8.2) ALBUMIN 2.9 L g/dL (3.3-5.0) BILIRUBIN, TOTAL 0.1 mg/dL (0.0-1.0) ALKALINE PHOSPHATASE 125 H U/L (46-116) AST (SGOT) 14 L U/L (15-37) ALT (SGPT) 9 L U/L (12-78) CPK 36 U/L (24-260) MAGNESIUM 1.9 mg/dL (1.8-2.4) TROPONIN I <0.05 L ng/mL (0.00-1.5) TROPONIN REFERENCE RANGE:<0.1 NEGATIVE0.1-1.5 INDETERMINANT>1.5 POSITIVE . Pulse Oximetry: 06/24/2016 18:42 O2 saturation: 100%. (FIO2 - room air). Interpretation: normal. PROGRESS AND PROCEDURES Course of Care: Nitroglycerin 1 inch paste given. Normal Saline 500 mL IVPB given. ASA 325 mg PO given. Protonix 40 mg IVP given. Lovenox 60 mg subQ given. Dilaudid 0.5 mg IVP given. 21:14 06/24/16. Patient is stable. Physical exam findings are improved. Symptoms much better. 21:51 06/24/16. Pt being transferred now. Discussed case with hospitalist, ([facility] hospitalist, Dr Potter call placed 20:33). Reviewed test results. Agreed upon treatment plan. Patient/family counseled. Old ED records reviewed. Transfer orders written. Disposition: Benefits, risks and alternatives to transfer explained to patient. Transferred to [facility]. Condition: stable, guarded and improved. CLINICAL IMPRESSION Precordial chest pain characterized as "discomfort" .12 lead EKG performed. Acute generalized weakness. Lung cancer. Abnormal EKG: nonspecific ST-T wave changes. (Electronically signed by Sal Acuna DO 06/25/2016 14:02)
--- NOTE | 2016-06-24 20:43 | ED ORDER SUMMARY ---
..... Patient: MARIA C ORO OrderSheet [facility] VisitID: [id number] [place] [address] 66y, F Registration Date/Time: 06/24/2016 ORDER SHEET Weight: 57.6 kg (stated) Allergies: STEROIDS GENERAL ORDERS: Chest 2V Urgent (18:49 06/24/2016 PHutchinson DO) (Ack 18:59 AMcQuoid ER Tech1) (19:21 RFay) Transcription Specialist (Continuous) (18:50 06/24/2016 PHutchinson DO) (18:50 MWinterer R.N.) UA-Culture if indicated Urgent (18:50 06/24/2016 PHutchinson DO) (Ack 18:59 AMcQuoid ER Tech1) Cardiac Panel Stat (18:50 06/24/2016 PHutchinson DO) (18:59 AMcQuoid ER Tech1) BNP Urgent (18:50 06/24/2016 PHutchinson DO) (18:59 AMcQuoid ER Tech1) D-Dimer Urgent (18:50 06/24/2016 PHutchinson DO) (18:59 AMcQuoid ER Tech1) Amylase Urgent (18:50 06/24/2016 PHutchinson DO) (18:59 AMcQuoid ER Tech1) PT with INR Urgent (18:50 06/24/2016 PHutchinson DO) (18:59 AMcQuoid ER Tech1) TSH Urgent (18:50 06/24/2016 PHutchinson DO) (18:59 AMcQuoid ER Tech1) Lipase Urgent (18:50 06/24/2016 PHutchinson DO) (18:59 AMcQuoid ER Tech1) Oxygen (2 L/min) (NC) (18:50 06/24/2016 PHutchinson DO) (18:50 MWinterer R.N.) Pulse oximeter (18:50 06/24/2016 PHutchinson DO) (18:50 MWinterer R.N.) EKG - ER Stat (18:50 06/24/2016 PHutchinson DO) (18:50 MWinterer R.N.) Vitals (18:50 06/24/2016 PHutchinson DO) (18:51 MWinterer R.N.) CTA Thorax w Cont (No) (BUN and Cr normal) (elevated d-dimer; history of cancer) Urgent (19:31 06/24/2016 [facility]) (Ack 19:37 AMcQuoid ER Tech1) (19:56 Mahin) MEDICATION ORDERS: Aspirin PO 325 mg (NOW) (18:50 06/24/2016 [facility]) (18:52 SBalde R.N.) NitroGLYCERIN Paste Topical 1 in. (NOW, to CW) (19:14 06/24/2016 [facility]) (19:37 HSoule) Lovenox Subcut 60 mg (HIGH ALERT MEDICATION, NOW) (20:44 06/24/2016 [facility]) (Ack 20:45 HSoule) (21:13 HSoule) IV FLUIDS: IV NS : initial bolus 500 mL (1000 mL/hr), then 250 mL/hr for X2 (NOW) (18:50 06/24/2016 [facility]) (19:36 HSoule) Dilaudid IV 0.5 mg (HIGH ALERT MEDICATION, NOW) (20:43 06/24/2016 [facility]) (Ack 20:45 HSoule) (21:13 HSoule) Protonix IVP 40mg 40 mg (Mix in NS 10ml over 2min) (20:47 06/24/2016 [facility]) (Ack 21:08 HSoule) (21:14 HSoule) ORDER SHEET NOTES: [Electronically signed by Rosalinda Ortiz (23:23 06/24/2016)] [Electronically signed by Sal Acuna DO (14:02 06/25/2016)] [Electronically locked/signed by Rosalinda Ortiz (23:23 06/24/2016)]
--- NOTE | 2016-06-24 20:43 | ED CLINICAL REPORT ---
Clinical Report - Physicians/Mid Levels [address] [place] [address] 06/24/2016 18:36 Patient: MARIA C ORO Time Seen: 18:44. Arrived- By private vehicle. Historian- patient. HISTORY OF PRESENT ILLNESS Chief Complaint: CHEST PAIN. WEAKNESS. It is described as pressure and it is described as located in the central chest area. No radiation. At its maximum, severity described as moderate. When seen in the E.D., severity described as moderate. Modifying factors- worsened by exertion and movement. Relieved by rest. 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 It was gradual in onset and has been waxing/waning. Onset during light activity. The patient has had difficulty breathing and nausea and has experienced diaphoresis. No vomiting. Similar symptoms previously: Recent medical care: The patient was seen recently at this facility in the emergency department (seen at [facility] ED 4 days ago). Diagnosis: (diverticulitis, UTI). REVIEW OF SYSTEMS No fever, chills, pedal edema, calf pain or fainting episodes. No headache, sore throat, black stools, difficulty with urination or skin rash. No bloody stools. She has had generalized muscle aches, a cough and joint pain. She has had abdominal pain (several days ago). She has had pre-existing numbness of the right hand, right foot, left hand and left foot. All systems otherwise negative, except as recorded above. PAST HISTORY See nurses notes. Primary physician (Dr. Meyer; Dr. Bruno - Oncologist) Cancer. 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 Diverticulitis. UTI SURGERIES: Leg - Condylocephalic nailing of the right femur. Lobectomy of lung. No history of coronary artery disease, congestive heart failure, heart rhythm problems or pulmonary embolism. Surgeries: No prior cardiac procedures. Medications: Flagyl Oral 500 mg, 4x a day (diverticulitis). Levofloxacin Oral 500 mg (started 06/20 for UTI). PredniSONE Oral (started 06/02/16 completed about 2 weeks later. ). Optivo IV Therapy/Immunotherapy. Excedrin Extra Strength Oral bid. TraMADol HCl Oral 50 mg, 4x a day as needed. Allergies: STEROIDS. ("not sure"). SOCIAL HISTORY Smoker- current status unknown. No alcohol use or drug use. ADDITIONAL NOTES The nursing notes have been reviewed. PHYSICAL EXAM Vital Signs: 06/24/2016 18:42 BP: 123/90. HR: 97. RR: 18. O2 saturation: 100%. Temp: 98.1 F. Appearance: Alert. Oriented X3. Anxious. Patient in moderate distress. Eyes: Eyes normal inspection. No scleral icterus or pale conjunctivae. ENT: Pharynx normal. No pharyngeal erythema or tonsillar exudate. The mucous membranes are not dry. Neck: Normal inspection. Neck supple. CVS: Heart sounds normal. Pulses normal. Respiratory: No respiratory distress. Expiratory mild bilateral wheezes present. Chest nontender. Abdomen: Soft and nontender. No mass. Back: Normal external inspection. No CVA tenderness. Skin: Skin warm and dry. Normal skin color. Normal skin turgor. Extremities: Extremities exhibit normal ROM. No calf tenderness. No lower extremity edema. Neuro: Oriented X 3. No motor deficit. No sensory deficit. LABS, X-RAYS, AND EKG EKG: EKG time: (18:46). Normal sinus rhythm. Rate: 95. Normal P waves. Normal NEVAEH. Normal QRS complex. Nondiagnostic Q waves in lead II, III and aVF. Left axis deviation. Non-specific ST segment / T wave abnormalities. Non-specific T wave flattening in lead aVL. Non-specific T wave inversion in lead V1 and V2. Changes present when compared to prior EKG. (inverted T in V2 - new vs 03 JUN 2015). The study has been interpreted contemporaneously by me. The EKG appears to be a good tracing. Rhythm Strip #1: Regular rhythm. Narrow QRS complexes. Chest X-ray: (IMPRESSION: 1. Mild bibasilar parenchymal scarring. 2. There is a persistent 4.0 cm right paratracheal enlarged lymph node. 3. Otherwise negative chest.). Views: PA and lateral. Technique: good. The X-rays were interpreted contemporaneously by me. The X-rays were discussed with the radiologist (via PACS note). Laboratory Tests: CBC w Diff: (NATHAN: 06/24/2016 18:46) ( MsgRcvd 06/24/2016 19:04) Final results Test Result Flag Units (Reference) WHITE BLOOD COUNT 9.7 K/uL (4.5-11.5) RED BLOOD COUNT 4.59 M/uL (4.00-5.20) HEMOGLOBIN 12.5 gm/dL (12.0-16.0) HEMATOCRIT 38.8 % (36.0-46.0) MEAN CELL VOLUME 85 fL (80-100) MEAN CORPUSCULAR HGB 27 pg (26-34) MEAN CORPUSCULAR HGB CONC 32 g/dL (31-37) RED CELL DISTRIBUTION WIDTH 18.4 H % (11.6-14.8) PLATELET COUNT 393 K/uL (150-400) NEUTROPHIL % 61.4 % (50-75) LYMPH % 24.3 L % (25-40) MONO % 10.4 % (3-14) EOSINOPHIL % 3.3 % (0-4) BASOPHIL % 0.6 % (0-2) PT with INR: (NATHAN: 06/24/2016 18:46) ( MsgRcvd 06/24/2016 19:22) Final results Test Result Flag Units (Reference) INR 1.1 (0.8-1.2) Low Intensity Therapy: INR 1.5-2.0 PT range 18.5-23.1Mod.Intensity Therapy: INR 2.0-3.0 PT range 23.1-31.5High Intensity Therapy: INR 2.5-3.5 PT range 27.4-35.5High Intensity Therapy 2: INR 3.0-4.0 PT range 31.5-39.3 D-DIMER QUANTITATIVE 1.51 H ug/mLFEU (0.27-0.52) The primary value of this quantitative assay relates toits negative predictive value (i.e. exclusion) of pulmonaryembolism/deep vein thrombosis/DIC.Elevated levels of d-dimer may also occur with:, age, cancer, inflammation, liver disease,post-op, infection, hematoma, coronary disease, peripheralarteriopathy, bleeding disorders and thrombolytic treatment.Results should be correlated with other clinical andradiological data.Testing Methodology: Latex Immunoassay BNP: (NATHAN: 06/24/2016 18:46) ( [facility] 06/24/2016 19:34) Final results Test Result Flag Units (Reference) B-TYPE NATRIURETIC PEPTIDE 102 H pg/ml (5-100) Lipase: (NATHAN: 06/24/2016 18:46) ( [facility] [place] 06/24/2016 19:24) Final results Test Result Flag Units (Reference) LIPASE 128 U/L (73-393) AMYLASE 51 U/L (25-115) THYROID STIMULATING HORMONE 3.041 uIU/mL (0.30-3.74) CHEM 13 PANEL: (NATHAN: 06/24/2016 18:46) ( [facility] 06/24/2016 19:22) Final results Test Result Flag Units (Reference) GLUCOSE 108 mg/dL (70-110) BUN 6 L mg/dL (7-18) CREATININE 0.8 mg/dL (0.6-1.3) Estimated GFR >60 mL/min Estimated GFR- >60 mL/min Note: Persistent reduction over 3 months in eGFR<60 mL/min/1.73 m2 defines CKD. Patients with eGFR values>=60 mL/min/1.73 m2 may also have CKD if evidence ofpersistent proteinuria. Additional information may be foundat www.[email or web address].org. SODIUM 145 mmol/L (136-145) POTASSIUM 3.7 mmol/L (3.5-5.1) CHLORIDE 107 mmol/L (98-107) CARBON DIOXIDE 25 mmol/L (21-32) CALCIUM 9.0 mg/dL (8.5-10.1) TOTAL PROTEIN 7.0 g/dL (6.4-8.2) ALBUMIN 2.9 L g/dL (3.3-5.0) BILIRUBIN, TOTAL 0.1 mg/dL (0.0-1.0) ALKALINE PHOSPHATASE 125 H U/L (46-116) AST (SGOT) 14 L U/L (15-37) ALT (SGPT) 9 L U/L (12-78) CPK 36 U/L (24-260) MAGNESIUM 1.9 mg/dL (1.8-2.4) TROPONIN I <0.05 L ng/mL (0.00-1.5) TROPONIN REFERENCE RANGE:<0.1 NEGATIVE0.1-1.5 INDETERMINANT>1.5 POSITIVE . Pulse Oximetry: 06/24/2016 18:42 O2 saturation: 100%. (FIO2 - room air). Interpretation: normal. PROGRESS AND PROCEDURES Course of Care: Nitroglycerin 1 inch paste given. Normal Saline 500 mL IVPB given. ASA 325 mg PO given. Protonix 40 mg IVP given. Lovenox 60 mg subQ given. Dilaudid 0.5 mg IVP given. 21:14 06/24/16. Patient is stable. Physical exam findings are improved. Symptoms much better. 21:51 06/24/16. Pt being transferred now. Discussed case with hospitalist, ([facility] hospitalist, Dr Potter call placed 20:33). Reviewed test results. Agreed upon treatment plan. Patient/family counseled. Old ED records reviewed. Transfer orders written. Disposition: Benefits, risks and alternatives to transfer explained to patient. Transferred to [facility]. Condition: stable, guarded and improved. CLINICAL IMPRESSION Precordial chest pain characterized as "discomfort" .12 lead EKG performed. Acute generalized weakness. Lung cancer. Abnormal EKG: nonspecific ST-T wave changes. (Electronically signed by Sal Acuna DO 06/25/2016 14:02)
--- NOTE | 2016-06-25 14:03 | ED DISCHARGE INSTRUCTIONS ---
Patient: MARIA C ORO General Instructions [facility] VisitID: [id number] [address] [place] [address] 66y, F Registration Date/Time: 06/24/2016 Precordial chest pain characterized as "discomfort" .12 lead EKG performed. Acute generalized weakness. Lung cancer. Abnormal EKG: nonspecific ST-T wave changes. (Electronically signed by Sal Acuna DO 06/25/2016 14:02)
--- NOTE | 2016-06-25 14:03 | ED MED RECONCILIATION SUMMARY ---
Patient: MARIA C ORO Medication Reconciliation Report [facility] VisitID: [id number] [address] [place] [address] 66y, F Registration Date/Time: 06/24/2016 Weight: 57.6 kg Height/Length: 62 in. BMI: 23.2 ALLERGIES: STEROIDS The patient's Home Medications are listed below: THE FOLLOWING MEDICATIONS NEED TO BE RECONCILED: Excedrin Extra Strength Oral bid Flagyl Oral 500 mg, 4x a day, diverticulitis Levofloxacin Oral 500 mg, started 06/20 for UTI Optivo IV Therapy/Immunotherapy PredniSONE Oral, started 06/02/16 completed about 2 weeks later. TraMADol HCl Oral 50 mg, 4x a day The source(s) of the original Home Medication information: patient The following Medications were given to the patient in the Emergency Department: Aspirin [PO] PO 325 mg, administered: 06/24/2016 6:52:00 PM IV NS IV Fluids bolus 0, then 1000 mL/hr, administered: 06/24/2016 7:36:00 PM NITROGLYCERIN PASTE [TOPICAL] Topical 1 in., administered: 06/24/2016 7:37:00 PM Dilaudid [IVP] IVP 0.5 mg, administered: 06/24/2016 9:08:00 PM Lovenox [Subcutaneous] Subcutaneous 60 mg, administered: 06/24/2016 9:08:00 PM PROTONIX [IVP] IVP 40 mg, administered: 06/24/2016 9:09:00 PM The following Medications were prescribed to the patient: None.
--- NOTE | 2016-06-25 14:03 | ED MAR SUMMARY ---
..... Medication Administration Record [facility] [address] [place] [address] Patient: MARIA C ORO Visit ID: [id number] 66y, F Weight: 57.6 kg Height/Length: 62 in BMI: 23.2 ALLERGIES: STEROIDS Given 18:52 06/24/2016 Bernadette Perez R.N. Medication Administered: ASPIRIN [PO], Dose: 325 mg PO. Medication Ordered: Aspirin PO 325 mg (NOW). Start 19:36 06/24/2016 Rosalinda Ortiz,, Stop 21:53 06/24/2016 Gennaro, Medication Administered: IV NS (SALINE), Dose: IV Fluids over 30 minute(s), Rate: 1000 mL/hr, Dispensed: 1000 mL bag, Site: #1 left AC. Medication Ordered: IV NS : initial bolus 500 mL (1000 mL/hr), then 250 mL/hr for X2 (NOW). Given 19:37 06/24/2016 Rosalinda Ortiz, Medication Administered: NITROGLYCERIN PASTE [TOPICAL], Dose: 1 in. Paste Topical. Medication Ordered: NitroGLYCERIN Paste Topical 1 in. (NOW, to CW). Given :08 06/24/2016 Rosalinda Ortiz, Medication Administered: DILAUDID [IVP] (HYDROMORPHONE HCL PF), Dose: 0.5 mg IVP over 1 minute(s), Site: #1 left AC. Medication Ordered: Dilaudid IV 0.5 mg (HIGH ALERT MEDICATION, NOW). Given :06/24/2016 Rosalinda Ortiz, Medication Administered: LOVENOX [SUBCUTANEOUS] (ENOXAPARIN SODIUM), Dose: 60 mg Subcutaneous. Medication Ordered: Lovenox Subcut 60 mg (HIGH ALERT MEDICATION, NOW). Given 21:09 06/24/2016 Rosalinda Ortiz, Medication Administered: PROTONIX [IVP] (PANTOPRAZOLE SODIUM), Dose: 40 mg IVP over 2 minute(s), Site: #1 left AC. Medication Ordered: Protonix IVP 40mg 40 mg (Mix in NS 10ml over 2min).
--- NOTE | 2016-06-25 14:03 | ED MAR SUMMARY ---
..... Medication Administration Record [facility] [address] [place] [address] Patient: MARIA C ORO Visit ID: [id number] 66y, F Weight: 57.6 kg Height/Length: 62 in BMI: 23.2 ALLERGIES: STEROIDS Given 18:52 06/24/2016 Bernadette Perez R.N. Medication Administered: ASPIRIN [PO], Dose: 325 mg PO. Medication Ordered: Aspirin PO 325 mg (NOW). Start 19:36 06/24/2016 Rosalinda Ortiz,, Stop 21:53 06/24/2016 Gennaro, Medication Administered: IV NS (SALINE), Dose: IV Fluids over 30 minute(s), Rate: 1000 mL/hr, Dispensed: 1000 mL bag, Site: #1 left AC. Medication Ordered: IV NS : initial bolus 500 mL (1000 mL/hr), then 250 mL/hr for X2 (NOW). Given 19:37 06/24/2016 Rosalinda Ortiz, Medication Administered: NITROGLYCERIN PASTE [TOPICAL], Dose: 1 in. Paste Topical. Medication Ordered: NitroGLYCERIN Paste Topical 1 in. (NOW, to CW). Given :08 06/24/2016 Rosalinda Ortiz, Medication Administered: DILAUDID [IVP] (HYDROMORPHONE HCL PF), Dose: 0.5 mg IVP over 1 minute(s), Site: #1 left AC. Medication Ordered: Dilaudid IV 0.5 mg (HIGH ALERT MEDICATION, NOW). Given :06/24/2016 Rosalinda Ortiz, Medication Administered: LOVENOX [SUBCUTANEOUS] (ENOXAPARIN SODIUM), Dose: 60 mg Subcutaneous. Medication Ordered: Lovenox Subcut 60 mg (HIGH ALERT MEDICATION, NOW). Given 21:09 06/24/2016 Rosalinda Ortiz, Medication Administered: PROTONIX [IVP] (PANTOPRAZOLE SODIUM), Dose: 40 mg IVP over 2 minute(s), Site: #1 left AC. Medication Ordered: Protonix IVP 40mg 40 mg (Mix in NS 10ml over 2min).
--- NOTE | 2016-06-25 14:03 | ED MED RECONCILIATION SUMMARY ---
Patient: MARIA C ORO Medication Reconciliation Report [facility] VisitID: [id number] [address] [place] [address] 66y, F Registration Date/Time: 06/24/2016 Weight: 57.6 kg Height/Length: 62 in. BMI: 23.2 ALLERGIES: STEROIDS The patient's Home Medications are listed below: THE FOLLOWING MEDICATIONS NEED TO BE RECONCILED: Excedrin Extra Strength Oral bid Flagyl Oral 500 mg, 4x a day, diverticulitis Levofloxacin Oral 500 mg, started 06/20 for UTI Optivo IV Therapy/Immunotherapy PredniSONE Oral, started 06/02/16 completed about 2 weeks later. TraMADol HCl Oral 50 mg, 4x a day The source(s) of the original Home Medication information: patient The following Medications were given to the patient in the Emergency Department: Aspirin [PO] PO 325 mg, administered: 06/24/2016 6:52:00 PM IV NS IV Fluids bolus 0, then 1000 mL/hr, administered: 06/24/2016 7:36:00 PM NITROGLYCERIN PASTE [TOPICAL] Topical 1 in., administered: 06/24/2016 7:37:00 PM Dilaudid [IVP] IVP 0.5 mg, administered: 06/24/2016 9:08:00 PM Lovenox [Subcutaneous] Subcutaneous 60 mg, administered: 06/24/2016 9:08:00 PM PROTONIX [IVP] IVP 40 mg, administered: 06/24/2016 9:09:00 PM The following Medications were prescribed to the patient: None.
--- NOTE | 2016-06-25 14:03 | ED DISCHARGE INSTRUCTIONS ---
Patient: MARIA C ORO General Instructions [facility] VisitID: [id number] [address] [place] [address] 66y, F Registration Date/Time: 06/24/2016 Precordial chest pain characterized as "discomfort" .12 lead EKG performed. Acute generalized weakness. Lung cancer. Abnormal EKG: nonspecific ST-T wave changes. (Electronically signed by Sal Acuna DO 06/25/2016 14:02)
== END 2016-06-24 21:45 | disposition short-term general hospital (02) ==
LOC: ED SRH 18:37
DX: R07.2 Precordial pain (principal); R53.1 Weakness; C34.90 Malignant neoplasm of unspecified part of unspecified bronchus or lung; R94.31 Abnormal electrocardiogram [ECG] [EKG]; Z88.8 Allergy status to other drugs, medicaments and biological substances; Z79.899 Other long term (current) drug therapy
CPT/HCPCS: 90004; 90100; 90616; 91320; 91556; 92235; 92530; 92610; 92720; 93140; 94060; 95059

== ENCOUNTER 2016-07-05 14:17 | Emergency (ER) | payer OTHER ==
--- NOTE | 2016-07-05 19:24 | DIAGNOSTIC IMAGING REPORT ---
PROCEDURE: MR BRAIN W/WO CONTRAST INDICATION: ALTERED MENTAL STATUS, history of lung cancer. TECHNIQUE: Multiplanar multisequence MRI imaging of the brain without contrast. Post administration of 15 ml ProHance gadolinium based IV contrast, three plane T1 fat sat sequences were obtained. COMPARISON: 05/23/2016 FINDINGS: Suboptimal exam secondary to motion artifact throughout. The midline structures are normally formed. The ventricular system is normal in size. Basal cisterns are patent. Flow voids in the major intracranial vessels are normal. Small focus of hemosiderin deposition in the left occipital parietal white matter which, postcontrast demonstrates trace wispy enhancement consistent with a tiny vascular malformation. Signal throughout the pratt and white matter demonstrates occasional punctate T2/FLAIR hyperintensities in the subcortical white matter bilaterally without corresponding enhancement. No restricted diffusion to suggest acute ischemia. No evidence of acute or chronic intraparenchymal or extra-axial hemorrhage. No mass , mass effect, or midline shift. No suspicious enhancement. Normal signal in the visible bones. Trace fluid dependently in both maxillary sinuses. Visible extracranial soft tissues including the orbits are normal. IMPRESSION: 1. No evidence of metastatic disease, stroke, or acute hemorrhage. 2. Tiny left parieto-occipital vascular malformation. 3. Minimal chronic small vessel ischemic change. 4. Findings called to the emergency room.
--- NOTE | 2016-07-06 02:37 | ED CLINICAL REPORT ---
Clinical Report - Physicians/Mid Levels [facility] [address] [place] [address] 07/05/2016 14:17 Patient: MARIA C ORO Time Seen: 14:29; initial patient contact. Arrived- By private vehicle. Historian- patient. CPT: ER phys charges level 5 (#601250). HISTORY OF PRESENT ILLNESS Chief Complaint: Sent over from Dr Esteban Oviedo's clinic for evaluation of neurologic symptoms that include altered vision left eye and unsteday gait and balance. ( Symptoms are new since starting immunotherapy for lung cancer and Dr Oviedo thinks her symptoms are likely due to the therapy but requests CT of chest/abdomen/Pelvis and MRI of head to r/o metastatic dz as cause of symptoms.). Is still present. At its maximum, severity described as moderate. When seen in the E.D., severity described as moderate. Modifying factors- worsened by walking. Not relieved by anything. No loss of appetite, weight loss, headache or muscle aches. She has had visual disturbance and fatigue. Denies sleep problem. No decreased urine output. Similar symptoms previously: None. Recent medical care: The patient was seen recently at another facility in a clinic (today). Seen for similar symptoms. Evaluation/treatment- Sent to ER. REVIEW OF SYSTEMS No fever, sore throat, sinus drainage, nasal congestion or cough. No difficulty breathing, chest pain, abdominal pain, nausea or vomiting. No diarrhea, black stools, bloody stools, chills or difficulty with urination. No skin rash, back pain, calf pain, headache or blackouts. No double vision. The patient has had difficulty with ambulation. All systems otherwise negative, except as recorded above. PAST HISTORY See nurses notes. Weakness. Lung Cancer. Abnormal EKG. Chest Pain. Lung Cancer. Diverticulosis. Diverticulitis. Degenerative disc disease Leg. Lobectomy of lung. . Medications: Dilaudid Oral (Tablet 2 mg) 2 tablets, BID, last dose 0800 (general muscle ). Excedrin Extra Strength Oral bid. Allergies: STEROIDS. ("not sure"). SOCIAL HISTORY Heavy tobacco smoker (cigarette)- less than 1 pack per day. No alcohol use or drug use. ADDITIONAL NOTES The nursing notes have been reviewed. PHYSICAL EXAM Vital Signs: 07/05/2016 14:22 BP: 151/88. HR: 85. RR: 20. O2 saturation: 96%. Temp: 98.8 F. Pain level now: 0/10. Appearance: Alert. Anxious. Patient in mild distress. Eyes: Eyes normal inspection. (reported decrease vision in the left eye). ENT: Dry mucous membranes present. Pharynx normal. Neck: Normal inspection. CVS: Normal heart rate and rhythm. Heart sounds normal. Pulses normal. Respiratory: No respiratory distress. Breath sounds normal. Chest nontender. Abdomen: No visible injury. Soft and nontender. No mass. Back: Normal inspection. Skin: Skin warm. Normal skin color. No rash. Extremities: Extremities exhibit normal ROM. No lower extremity edema. Neuro: Oriented X 3. No motor deficit. No sensory deficit. Reflexes normal. (Ataxic gait .). LABS, X-RAYS, AND EKG EKG: Normal sinus rhythm. Normal P waves. Normal NEVAEH. Normal QRS complex. Left axis deviation. Normal ST and T waves. Prior EKG unavailable. The study has been interpreted contemporaneously. The study has been independently viewed by me. The EKG appears to be a good tracing. Laboratory Tests: UA-Culture if indicated: (NATHAN: 07/05/2016 16:42) ( MsgRcvd 07/05/2016 17:13) Final results Test Result Flag Units (Reference) URINE COLOR YELLOW URINE APPEARANCE CLEAR URINE GLUCOSE NEGATIVE (NEGATIVE) URINE BILIRUBIN NEGATIVE (NEGATIVE) URINE KETONE NEGATIVE (NEGATIVE) URINE SPECIFIC GRAVITY 1.010 (1.010-1.030) URINE PH 7.0 (5.0-8.0) URINE PROTEIN NEGATIVE (NEGATIVE) URINE UROBILINOGEN 0.2 EU/dL (0.2-1.0) URINE NITRITE NEGATIVE (NEGATIVE) URINE BLOOD NEGATIVE (NEGATIVE) URINE LEUK ESTERASE POSITIVE (NEGATIVE) URINE RBC 0-1 rbc/hpf (0-1) URINE WBC 10-15 wbc/hpf (0-1) URINE EPITHELIAL CELLS 3-5 EPI/hpf (0-5) URINE BACTERIA FEW (1+) (NONE SEEN) URINE COMMENT CULTURE INDICATED URINE CULTURES ARE SET-UP BASED ON THE FOLLOWING CRITERIA:POSITIVE NITRITEPOSITIVE LEUKOCYTE ESTERASEGREATER THAN 10 WHITE BLOOD CELLSMODERATE (2+) OR GREATER BACTERIA ESR: (NATHAN: 07/05/2016 14:10) ( [facility] 07/05/2016 15:52) Final results Test Result Flag Units (Reference) SED RATE WESTERGREN 64 H mm/hr (0-30) CBC w Diff: (NATHAN: 07/05/2016 14:10) ( [facility] 07/05/2016 15:31) Final results Test Result Flag Units (Reference) WHITE BLOOD COUNT 8.7 K/uL (4.5-11.5) RED BLOOD COUNT 4.70 M/uL (4.00-5.20) HEMOGLOBIN 12.8 gm/dL (12.0-16.0) HEMATOCRIT 39.5 % (36.0-46.0) MEAN CELL VOLUME 84 fL (80-100) MEAN CORPUSCULAR HGB 27 pg (26-34) MEAN CORPUSCULAR HGB CONC 33 g/dL (31-37) RED CELL DISTRIBUTION WIDTH 17.9 H % (11.6-14.8) PLATELET COUNT 453 H K/uL (150-400) NEUTROPHIL % 65.8 % (50-75) LYMPH % 21.5 L % (25-40) MONO % 9.3 % (3-14) EOSINOPHIL % 1.9 % (0-4) BASOPHIL % 1.5 % (0-2) TSH: (NATHAN: 07/05/2016 14:10) ( [facility] 07/05/2016 15:43) Final results Test Result Flag Units (Reference) THYROID STIMULATING HORMONE 0.804 uIU/mL (0.30-3.74) C-REACTIVE PROTEIN 13.0 H mg/dL (0.0-0.9) CHEM 13 PANEL: (NATHAN: 07/05/2016 14:10) ( [facility] 07/05/2016 15:42) Final results Test Result Flag Units (Reference) GLUCOSE 96 mg/dL (70-110) BUN 11 mg/dL (7-18) CREATININE 0.8 mg/dL (0.6-1.3) Estimated GFR >60 mL/min Estimated GFR- >60 mL/min Note: Persistent reduction over 3 months in eGFR<60 mL/min/1.73 m2 defines CKD. Patients with eGFR values>=60 mL/min/1.73 m2 may also have CKD if evidence ofpersistent proteinuria. Additional information may be foundat www.kidney.org. SODIUM 141 mmol/L (136-145) POTASSIUM 3.9 mmol/L (3.5-5.1) CHLORIDE 103 mmol/L (98-107) CARBON DIOXIDE 26 mmol/L (21-32) CALCIUM 9.2 mg/dL (8.5-10.1) TOTAL PROTEIN 7.1 g/dL (6.4-8.2) ALBUMIN 2.9 L g/dL (3.3-5.0) BILIRUBIN, TOTAL 0.2 mg/dL (0.0-1.0) ALKALINE PHOSPHATASE 131 H U/L (46-116) AST (SGOT) 18 U/L (15-37) ALT (SGPT) 9 L U/L (12-78) CPK 37 U/L (24-260) MAGNESIUM 2.2 mg/dL (1.8-2.4) TROPONIN I <0.05 L ng/mL (0.00-1.5) TROPONIN REFERENCE RANGE:<0.1 NEGATIVE0.1-1.5 INDETERMINANT>1.5 POSITIVE . Note - Tests: (MRI head : NAD . No lesions .). PROGRESS AND PROCEDURES Course of Care: 15:28 07/05/16. Discussed with Dr. Esteban Lane. He sent the patient to the ER to get CT of chest abdomen pelvis as well as MRI of head due to new neurologic symptoms. Decadron 4 mg IV times 2 doses in ER Ativan 0.5 mg IV times 2. Pt could not tolerate the MRI tube so had to be brought back to the ER for sedation and attempted later. 19:24 07/05/16. MRI report 20:39 07/05/16. Discussed with Dr Bruno and he is OK with patient going home if improved and stable . says she is 100% better since being here. Pt wants to try and go home on the oral decadron. will be there with her. Pt is due for more decadron. 4 mg IV given. Patient is stable. Symptoms much better. Discussed case with patient's primary care provider, (Preet). Reviewed test results. Agreed upon treatment plan. Health care provider will see patient in office. Patient/family counseled. Disposition: Discharged. Condition: stable and improved. CLINICAL IMPRESSION Acute neurological symptoms related to immunotherapy: Now improved. INSTRUCTIONS Warnings: Further evaluation is necessary. GENERAL WARNINGS: Return or contact your physician immediately if your condition worsens or changes unexpectedly, if not improving as expected, or if other problems arise. Your Current Medications: CONTINUE TAKING THE FOLLOWING MEDICATIONS: Dilaudid Oral : Tablet 2 mg, 2 tablets BID, Last: 0800, general muscle. Excedrin Extra Strength Oral : bid. Prescription Medications: Decadron 4 mg: take 1 orally every 6 hours for 5 days. Dispense twenty (20). No refill. Substitution is permissible. Understanding of the discharge instructions verbalized by patient and family. Discharge instructions reviewed with and understanding was verbalized by spouse. Follow-up with: Esteban Oviedo MD, Oncology, , [facility], [address] [place] [address], [place] [address] Follow up Sunday in two days. Call for the next available appointment. (Electronically signed by Feroz Gallo MD 07/07/2016 18:58)
--- NOTE | 2016-07-06 02:37 | ED NURSING NOTES ---
Clinical Report - Nurses [facility] [address] [place] [address] 07/05/2016 14:17 Patient: MARIA C ORO TRIAGE Triage time 1422. Acuity: LEVEL 3. Chief Complaint: (pt in c/o generalized wekaness, unstable on feet, and can't co-ordinate vision well--has had these symptoms for the last month --onchologist had pt come in, thinking that meds may be attacking muscles.). 14:22. GRACE COMA SCORE: Grace Coma Scale: 15- eyes open spontaneously (4); best verbal response- oriented x 4 (5); best motor response- obeys commands (6). --14:40 Vanessa Diaz R.N. 14:22 07/05/16. BP: 151/88. HR: 85. RR: 20. O2 saturation: 96%. Temp: 98.8 F. Pain level now: 0/10. --14:40 Vanessa Diaz R.N. Weight: 56.6 kg stated. Height/Length: 62 inches Per Patient. BMI: 22.8. --14:35 Vanessa Diaz R.N. Medications Excedrin Extra Strength Oral bid. --14:37 Vanessa Diaz R.N. Dilaudid Oral (Tablet 2 mg) 2 tablets, BID, last dose 0800 (general muscle ). --14:38 Vanessa Diaz R.N. Allergies STEROIDS. ("not sure") --14:37 Vanessa Diaz R.N. History Arrived by private vehicle. Historian: patient. Accompanied by spouse. Primary physician (patrica). The patient has had weakness. She has had a cough (occassional). Reports muscle aches. No fever, difficulty breathing or skin rash. SOCIAL HX: Light tobacco smoker (cigarette)- less than 1/2 a pack per day. No alcohol use or drug use. --14:40 Vanessa Diaz R.N. PROBLEMS: Weakness. Lung Cancer. Abnormal EKG. Chest Pain. Cancer. Diverticulosis. Diverticulitis. --14:36 Vanessa Diaz R.N. Degenerative disc disease. --14:39 Vanessa Diaz R.N. ADDITIONAL SURGERIES: Leg. Lobectomy of lung. --14:36 Vanessa Diaz R.N. Interventions ID band on patient. To treatment room. --14:40 Vanessa Diaz R.N. PHYSICAL ASSESSMENT 14:22. Ambulatory to room. Patient gowned. GENERAL / NEURO / PSYCH: Alert. Oriented X 4. HEENT: Mucous membranes are pink. RESPIRATORY: Mild respiratory distress. The patient can speak in full sentences. CVS: Capillary refill less than 2 seconds. GI / : Abdomen soft. SKIN: Skin is warm but moist. --14:42 Vanessa Diaz R.N. NURSING PROGRESS NOTES 14:22. Patient gowned. Head of bed elevated. Reassurance given. Patient identifiers checked. Call light placed in reach. Side rails up. Bed placed in lowest position. Patient ready for evaluation- chart flagged. --14:41 Vanessa Diaz R.N. 14:47 07/05/2016 Site #1 started via IV in the right forearm with an 20g angiocath, with aseptic technique and good blood return; one attempt. Blood drawn: rainbow set. Labeled in the presence of the patient and sent to the lab. Saline lock flushed with 10 mL saline. --15:05 Vanessa Diaz R.N. 14:50 07/05/2016 Started bag #1 1000 mL IV Fluids IV NS (Saline); bolus of 500 mL over 30 minute(s) then at 250 mL/hr over 4 hour(s) via site #1 via IV pump. IV patency established. IV site checked: no pain, redness, or swelling. IV flushed thoroughly pre- and post-medication administration. --15:06 Vanessa Diaz R.N. 15:00. ( Pt given MRI form to fill out, ETA 1530). --15:07 Vanessa Diaz R.N. 15:10 07/05/2016 Decadron IVP 4 mg given over 1 minute(s) via site #1. IV patency established. IV site checked: no pain, redness, or swelling. IV flushed thoroughly pre- and post-medication administration. IVP given by RN. --15:19 Vanessa Diaz R.N. 15:22 07/05/16. BP: 136/89. HR: 84. RR: 20. O2 saturation: 97% on room air. Temp: deferred. Pain level now: 09/06. Additional comments: pt c/o feeling dizzy and "fuzzy" after decadrone given, and some chest heaviness and back pain. ERMD notified, EKG ordered . --15:31 Vanessa Diaz R.N. 15:38 07/05/16. EKG time: (1537). EKG was performed by a tech and shown to the ED physician. --15:38 Ameena Espinoza 15:45 07/05/16. BP: 147/93. HR: 82. RR: 20. O2 saturation: 97%. Temp: deferred. Pain level now: 09/06. --16:07 Vanessa Diaz R.N. 15:45. ( Pt states she feels "a little better" now. Pt states back pain is due to scoliosis, a waffle mattress will be placed on pt bed before she returns from MRI .). --16:07 Vanessa Diaz R.N. 15:48 taken to MRI via W/C. --16:10 Vanessa Diaz R.N. 16:31 07/05/16. ( Since MRI was scheduled for 1529, it was too late to do the procedure. technical architect here, stated that if we sedate the pt. for anxiety, he will pick her up at 1730 and do the scan.). --16:31 Michell Patton R.N. 16:31 addenda-- apparently pt was unable to be in MRI tube , became chlostrophobic after 2 min, and asked to be let out. Pt was returned to dept. via w/c with plan to givem meds and try again. However, pt asking staff if we can "Just wait and due it tomorrow?" KATIAD notified of pt request. --16:57 Vanessa Diaz R.N. 16:35 07/05/16. BP: 142/87. HR: 88. RR: 20. O2 saturation: 94%. Temp: deferred. Pain level now: 5/10. Additional comments: Pt assisted to bathroom, UA obtained and sent to lab. Air "waffle" matress placed on pt bed . --16:58 Vanessa Diaz R.N. 16:45 07/05/2016 Ativan (LORazepam) IVP 0.5 mg given over 1 minute(s) via site #1. --17:02 Vanessa Diaz R.N. 16:58 07/05/16. BP: 136/90. HR: 85. RR: 16. O2 saturation: 98% on nasal cannula at 2 liters/minute. Temp: deferred. Pain level now: 0/10. Additional comments: pt appears to be sleeping, placed on 2L NC o2, since o2 sat on RN was 92%. --17:04 Vanessa Diaz R.N. 17:05 07/05/16. BP: 150/89. HR: 85. RR: 16. O2 saturation: 99%. Temp: deferred. Additional comments: pt sleeping. --17:07 Vanessa Diaz R.N. 17:22 07/05/16. BP: 147/84. HR: 83. RR: 16. O2 saturation: 99%. Temp: deferred. Pain level now: 0/10. Additional comments: Pt denies pain states "I just feel tired" when told we are going to try MRI again she stated "I can do 5 min, but not an hour in there" . --17:26 Vanessa Diaz R.N. 15:30 07/05/2016 IV Fluids IV NS via IV site #1 Rate Changed: bag #1 decreased to 250 mL/hr via IV pump. IV patency established. IV site checked: no pain, redness, or swelling. IV flushed thoroughly. --21:15 Vanessa Diaz R.N. 17:22 07/05/2016 Ativan (LORazepam) IVP 0.5 mg given over 1 minute(s) via site #1. IV patency established. IV site checked: no pain, redness, or swelling. IV flushed thoroughly pre- and post-medication administration. IVP given by RN. --17:27 Vanessa Diaz R.N. 17:40 assisted technical architect to get pt to MRI area via cart. Stayed in MRI for 10 min- pt tolerating bed/proceedure well. --17:59 Vanessa Diaz R.N. Patient returned from MRI by stretcher. (2 person assist back to ER). --18:58 JadFatoumataSalena, ER Tech1 18:50 07/05/16. BP: 118/82. HR: 80. RR: 18. O2 saturation: 95% on room air. Temp: deferred. Pain level now: 0/10. Additional comments: pt states that her eye sight is better, pt is not squinting with left eye anymore. . --19:02 Vanessa Diaz R.N. 18:55 07/05/2016 Started 2 gm of Rocephin (CefTRIAXone Sodium) IVPB in bag #1 50 mL; at 150 mL/hr over 20 minute(s) via site #1 via IV pump. IV patency established. IV site checked: no pain, redness, or swelling. IV flushed thoroughly pre- and post-medication administration. --19:03 Vanessa Diaz R.N. 19:15 07/05/2016 Rocephin IVPB Discontinued: bag #1 infused. Total amount infused: 50 mL. IV patency established. IV site checked: no pain, redness, or swelling. IV flushed thoroughly. --19:16 Vanessa Diaz R.N. 19:30 07/05/16. BP: 134/81. HR: 83. RR: 18. O2 saturation: 97% on room air. Temp: deferred. Pain level now: 0/10. Additional comments: given po food and fluids . --19:37 Vanessa Diaz R.N. 17:40 07/05/2016 IV Fluids IV NS via IV site #1 Rate Changed: bag #1 decreased to 0 mL/hr (IV bag suspended while pt in MRI at [id number], and from [id number]). --21:19 Vanessa Diaz R.N. 19:00 07/05/2016 IV Fluids IV NS via IV site #1 Rate Changed: bag #1 increased to 250 mL/hr via IV pump. --21:20 Vanessa Diaz R.N. 20:37 07/05/2016 Decadron IVP 4 mg given over 1 minute(s) via site #1. IV patency established. IV site checked: no pain, redness, or swelling. IV flushed thoroughly pre- and post-medication administration. IVP given by RN. --21:21 Vanessa Diaz R.N. 20:40 07/05/2016 Site #1 removed upon discharge. Bandaid applied. --21:21 Vanessa Diaz R.N. 20:40 07/05/2016 IV Fluids IV NS Discontinued: bag #1 STOPPED upon discharge. Total amount infused: 1000 mL. IV patency established. IV site checked: no pain, redness, or swelling. IV flushed thoroughly. --21:20 Vanessa Diaz R.N. DISPOSITION / DISCHARGE 20:50. Condition at departure: improved and stable. No learning barriers present. Discharge instructions provided and reviewed with the patient and spouse. Reviewed medication(s) (decadron). Patient and spouse verbalized understanding. Written instructions provided in Polish. The patient was discharged home and accompanied by spouse. She left the Emergency Department ambulatory and via private vehicle. Spouse driving. GRACE COMA SCORE: [place] Coma Scale: 15- eyes open spontaneously (4); best verbal response- oriented x 4 (5); best motor response- obeys commands (6). --21:14 Vanessa Diaz R.N. 20:50 07/05/16. BP: 124/76. HR: 102. RR: 20. O2 saturation: 95% on room air. Temp: 98.2 F. Pain level now: 0/10. --21:14 Vanessa Diaz R.N. Locked/Released at 07/13/2016 8:39 by Morelia Ortega R.N.
--- NOTE | 2016-07-06 02:37 | ED ORDER SUMMARY ---
..... Patient: MARIA C ORO OrderSheet [facility] VisitID: [id number] [address] [place] [address] 66y, F Registration Date/Time: 07/05/2016 ORDER SHEET Weight: 56.6 kg (stated) Allergies: STEROIDS GENERAL ORDERS: MRI Brain w/wo IACS w/wo Cont (Not Applicable) (new neurologic symptoms . Metastatic lung CA. ) Urgent (14:35 07/05/2016 Wilda WALLACE) (Ack 14:47 Kd) (19:04 DDean R.N.) CT Thorax/Abd/Pelvis w Cont (No) (pending) (metastatic cancer with new neurologic symptomsand weakness. ) Urgent (14:37 07/05/2016 Wilda WALLACE) (Ack 14:47 Kd) (Cancelled: Other15:27 Wilda WALLACE) Cardiac Panel Stat (14:38 07/05/2016 Wilda WALLACE) (Ack 14:47 Kd) (15:05 DDean R.N.) TSH Urgent (14:38 07/05/2016 Wilda WALLACE) (Ack 14:47 Kd) (15:05 DDean R.N.) UA-Culture if indicated Urgent (14:38 07/05/2016 Wilda WALLACE) (Ack 14:47 Kd) (17:10 DDean R.N.) CRP Urgent (14:38 07/05/2016 Wilda WALLACE) (Ack 14:47 Kd) (15:05 DDean R.N.) ESR Urgent (14:38 07/05/2016 Wilda WALLACE) (Ack 14:47 Kd) (15:05 DDean R.N.) EKG - ER Stat (15:29 07/05/2016 DDean R.N. verbal order read back to Wilda WALLACE) (Ack 15:30 TILAoerner) (15:38 KHoerner) MEDICATION ORDERS: IV FLUIDS: IV NS : initial bolus 500 mL (1000 mL/hr), then 250 mL/hr for 4h (NOW); Routine (14:37 07/05/2016 Wilda WALLACE) (Ack 14:43 DDean R.N.) (15:06 DDean R.N.) Decadron IV 4 mg (NOW) (14:38 07/05/2016 Wilda WALLACE) (Ack 14:43 DDean R.N.) (15:19 DDean R.N.) Ativan IV 0.5 mg (NOW) (Sched q5m for X2); Routine (Sched q5m for X2) (16:28 07/05/2016 Wilda WALLACE) (Ack 16:45 DDean R.N.) (17:02 DDean R.N.) Ativan IV 0.5 mg (NOW) (Sched q5m for X2); Routine (16:33 07/05/2016 Wilda WALLACE) (Ack 17:10 DDean R.N.) (17:27 DDean R.N.) Rocephin IV 2 gm/50mL (for UTI) (17:37 07/05/2016 Wilda WALLACE) (Ack 17:57 DDean R.N.) (19:03 DDean R.N.) Decadron IV 4 mg (NOW) (20:45 07/05/2016 Wilda WALLACE) (21:21 DDean R.N.) ORDER SHEET NOTES: [Electronically signed by Feroz Gallo MD (18:58 07/07/2016)] [Electronically signed by Morelia Ortega R.N. (08:39 07/13/2016)] [Electronically locked/signed by Morelia Ortega R.N. (08:39 07/13/2016)]
--- NOTE | 2016-07-06 02:37 | ED ORDER SUMMARY ---
..... Patient: MARIA C ORO OrderSheet [facility] VisitID: [id number] [address] [place] [address] 66y, F Registration Date/Time: 07/05/2016 ORDER SHEET Weight: 56.6 kg (stated) Allergies: STEROIDS GENERAL ORDERS: MRI Brain w/wo IACS w/wo Cont (Not Applicable) (new neurologic symptoms . Metastatic lung CA. ) Urgent (14:35 07/05/2016 Wilda WALLACE) (Ack 14:47 Kd) (19:04 DDean R.N.) CT Thorax/Abd/Pelvis w Cont (No) (pending) (metastatic cancer with new neurologic symptomsand weakness. ) Urgent (14:37 07/05/2016 Wilda WALLACE) (Ack 14:47 Kd) (Cancelled: Other15:27 Wilda WALLACE) Cardiac Panel Stat (14:38 07/05/2016 Wilda WALLACE) (Ack 14:47 Kd) (15:05 DDean R.N.) TSH Urgent (14:38 07/05/2016 Wilda WALLACE) (Ack 14:47 Kd) (15:05 DDean R.N.) UA-Culture if indicated Urgent (14:38 07/05/2016 Wilda WALLACE) (Ack 14:47 Kd) (17:10 DDean R.N.) CRP Urgent (14:38 07/05/2016 Wilda WALLACE) (Ack 14:47 Kd) (15:05 DDean R.N.) ESR Urgent (14:38 07/05/2016 Wilda WALLACE) (Ack 14:47 Kd) (15:05 DDean R.N.) EKG - ER Stat (15:29 07/05/2016 DDean R.N. verbal order read back to Wilda WALLACE) (Ack 15:30 TILAoerner) (15:38 KHoerner) MEDICATION ORDERS: IV FLUIDS: IV NS : initial bolus 500 mL (1000 mL/hr), then 250 mL/hr for 4h (NOW); Routine (14:37 07/05/2016 Wilda WALLACE) (Ack 14:43 DDean R.N.) (15:06 DDean R.N.) Decadron IV 4 mg (NOW) (14:38 07/05/2016 Wilad WALLACE) (Ack 14:43 DDean R.N.) (15:19 DDean R.N.) Ativan IV 0.5 mg (NOW) (Sched q5m for X2); Routine (Sched q5m for X2) (16:28 07/05/2016 Wilda WALLACE) (Ack 16:45 DDean R.N.) (17:02 DDean R.N.) Ativan IV 0.5 mg (NOW) (Sched q5m for X2); Routine (16:33 07/05/2016 Wilda WALLACE) (Ack 17:10 DDean R.N.) (17:27 DDean R.N.) Rocephin IV 2 gm/50mL (for UTI) (17:37 07/05/2016 Wilda WALLACE) (Ack 17:57 DDean R.N.) (19:03 DDean R.N.) Decadron IV 4 mg (NOW) (20:45 07/05/2016 Wilda WALLACE) (21:21 DDean R.N.) ORDER SHEET NOTES: [Electronically signed by Feroz Gallo MD (18:58 07/07/2016)] [Electronically signed by Morelia Ortega R.N. (08:39 07/13/2016)] [Electronically locked/signed by Morelia Ortega R.N. (08:39 07/13/2016)]
--- NOTE | 2016-07-13 08:40 | ED MAR SUMMARY ---
..... Medication Administration Record [address] [place] [address] Patient: MARIA C ORO Visit ID: [id number] 66y, F Weight: 56.6 kg Height/Length: 62 in BMI: 22.8 ALLERGIES: STEROIDS Start 14:50 07/05/2016 Vanessa Diaz R.N., Stop 20:40 07/05/2016 Vanessa Diaz R.N. Medication Administered: IV NS (SALINE), Dose: IV Fluids over 4 hour(s), Rate: 250 mL/hr, Bolus: 500 mL over 30 minute(s), Dispensed: 1000 mL bag, Site: #1 right forearm. Medication Ordered: IV NS : initial bolus 500 mL (1000 mL/hr), then 250 mL/hr for 4h (NOW); Routine. Given 15:10 07/05/2016 Vanessa Diaz R.N. Medication Administered: DECADRON [IVP], Dose: 4 mg IVP over 1 minute(s), Site: #1 right forearm. Medication Ordered: Decadron IV 4 mg (NOW). Given 16:45 07/05/2016 Vanessa Diaz R.N. Medication Administered: ATIVAN [IVP] (LORAZEPAM), Dose: 0.5 mg IVP over 1 minute(s), Site: #1 right forearm. Medication Ordered: Ativan IV 0.5 mg (NOW) (Sched q5m for X2); Routine 1 of 2. Given 17:22 07/05/2016 Vanessa Diaz R.N. Medication Administered: ATIVAN [IVP] (LORAZEPAM), Dose: 0.5 mg IVP over 1 minute(s), Site: #1 right forearm. Medication Ordered: Ativan IV 0.5 mg (NOW) (Sched q5m for X2); Routine 2 of 2. Start 18:55 07/05/2016 Vanessa Diaz R.N., Stop 19:15 07/05/2016 Vanessa Diaz R.N. Medication Administered: ROCEPHIN [IVPB] (CEFTRIAXONE SODIUM), Dose: 2 gm IVPB over 20 minute(s), Rate: 150 mL/hr, Dispensed: 50 mL bag, Site: #1 right forearm. Medication Ordered: Rocephin IV 2 gm/50mL (for UTI). Given 20:37 07/05/2016 JoeVanessa RJuan JoseN. Medication Administered: DECADRON [IVP], Dose: 4 mg IVP over 1 minute(s), Site: #1 right forearm. Medication Ordered: Decadron IV 4 mg (NOW).
--- NOTE | 2016-07-13 08:40 | ED DISCHARGE INSTRUCTIONS ---
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 INSTRUCTIONS Warnings: Further evaluation is necessary. GENERAL WARNINGS: Return or contact your physician immediately if your condition worsens or changes unexpectedly, if not improving as expected, or if other problems arise. Your Current Medications: CONTINUE TAKING THE FOLLOWING MEDICATIONS: Dilaudid Oral : Tablet 2 mg, 2 tablets BID, Last: 0800, general muscle. Excedrin Extra Strength Oral : bid. Prescription Medications: Decadron 4 mg: take 1 orally every 6 hours for 5 days. Dispense twenty (20). No refill. Substitution is permissible. Understanding of the discharge instructions verbalized by patient and family. Discharge instructions reviewed with and understanding was verbalized by spouse. Follow-up with: Esteban Oviedo MD, Oncology, , [facility], [address] [place] [address] Follow up Sunday in two days. Call for the next available appointment. ADDITIONAL INFORMATION Dexamethasone Oral tablet What is this medicine? DEXAMETHASONE (dex a METH a sone) is a corticosteroid. It is commonly used to treat inflammation of the skin, joints, lungs, and other organs. Common conditions treated include asthma, allergies, and arthritis. It is also used for other conditions, such as blood disorders and diseases of the adrenal glands. How should I use this medicine? Take this medicine by mouth with a drink of water. Follow the directions on the prescription label. Take it with food or milk to avoid stomach upset. If you are taking this medicine once a day, take it in the morning. Do not take more medicine than you are told to take. Do not suddenly stop taking your medicine because you may develop a severe reaction. Your doctor will tell you how much medicine to take. If your doctor wants you to stop the medicine, the dose may be slowly lowered over time to avoid any side effects. Talk to your general ledger bookkeeper regarding the use of this medicine in children. Special care may be needed. Patients over 65 years old may have a stronger reaction and need a smaller dose. What side effects may I notice from receiving this medicine? Side effects that you should report to your doctor or health rental boats caretaker as soon as possible: allergic reactions like skin rash, itching or hives, swelling of the face, lips, or tongue changes in vision fever, sore throat, sneezing, cough, or other signs of infection, wounds that will not heal increased thirst mental depression, mood swings, mistaken feelings of self importance or of being mistreated pain in hips, back, ribs, arms, shoulders, or legs redness, blistering, peeling or loosening of the skin, including inside the mouth trouble passing urine or change in the amount of urine swelling of feet or lower legs unusual bleeding or bruising Side effects that usually do not require medical attention (report to your doctor or health rental boats caretaker if they continue or are bothersome): headache nausea, vomiting skin problems, acne, thin and shiny skin weight gain What may interact with this medicine? Do not take this medicine with any of the following medications: mifepristone, RU-486 vaccines This medicine may also interact with the following medications: amphotericin B antibiotics like clarithromycin, erythromycin, and troleandomycin aspirin and aspirin-like drugs barbiturates like phenobarbital carbamazepine cholestyramine cholinesterase inhibitors like donepezil, galantamine, rivastigmine, and tacrine cyclosporine digoxin diuretics ephedrine female hormones, like estrogens or progestins and control pills indinavir isoniazid ketoconazole medicines for diabetes medicines that improve muscle tone or strength for conditions like myasthenia gravis NSAIDs, medicines for pain and inflammation, like ibuprofen or naproxen phenytoin rifampin thalidomide warfarin What if I miss a dose? If you miss a dose, take it as soon as you can. If it is almost time for your next dose, talk to your doctor or health rental boats caretaker. You may need to miss a dose or take an extra dose. Do not take double or extra doses without advice. Where should I keep my medicine? Keep out of the reach of children. Store at room temperature between 20 and 25 degrees C (68 and 77 degrees F). Protect from light. Throw away any unused medicine after the expiration date. What should I tell my health care provider before I take this medicine? They need to know if you have any of these conditions: Ivis's syndrome diabetes glaucoma heart problems or disease high blood pressure infection like herpes, measles, tuberculosis, or chickenpox kidney disease liver disease mental problems myasthenia gravis osteoporosis previous heart attack seizures stomach, ulcer or intestine disease including colitis and diverticulitis thyroid problem an unusual or allergic reaction to dexamethasone, corticosteroids, other medicines, lactose, foods, dyes, or preservatives or trying to get breast-feeding What should I watch for while using this medicine? Visit your doctor or health rental boats caretaker for regular checks on your progress. If you are taking this medicine over a prolonged period, carry an identification card with your name and address, the type and dose of your medicine, and your doctor's name and address. This medicine may increase your risk of getting an infection. Stay away from people who are sick. Tell your doctor or health rental boats caretaker if you are around anyone with measles or chickenpox. If you are going to have surgery, tell your doctor or health rental boats caretaker that you have taken this medicine within the last twelve months. Ask your doctor or health rental boats caretaker about your diet. You may need to lower the amount of salt you eat. The medicine can increase your blood sugar. If you are a diabetic check with your doctor if you need help adjusting the dose of your diabetic medicine. You have been given the following additional information: Dexamethasone Oral tablet (Electronically signed by Feroz Gallo MD 07/07/2016 18:58)
--- NOTE | 2016-07-13 08:40 | ED MAR SUMMARY ---
..... Medication Administration Record [facility] [address] [place] [place] [address] Patient: MARIA C ORO Visit ID: [id number] 66y, F Weight: 56.6 kg Height/Length: 62 in BMI: 22.8 ALLERGIES: STEROIDS Start 14:50 07/05/2016 Vanessa Diaz R.N., Stop 20:40 07/05/2016 Vanessa Diaz R.N. Medication Administered: IV NS (SALINE), Dose: IV Fluids over 4 hour(s), Rate: 250 mL/hr, Bolus: 500 mL over 30 minute(s), Dispensed: 1000 mL bag, Site: #1 right forearm. Medication Ordered: IV NS : initial bolus 500 mL (1000 mL/hr), then 250 mL/hr for 4h (NOW); Routine. Given 15:10 07/05/2016 Vanessa Diaz R.N. Medication Administered: DECADRON [IVP], Dose: 4 mg IVP over 1 minute(s), Site: #1 right forearm. Medication Ordered: Decadron IV 4 mg (NOW). Given 16:45 07/05/2016 Vanessa Diaz R.N. Medication Administered: ATIVAN [IVP] (LORAZEPAM), Dose: 0.5 mg IVP over 1 minute(s), Site: #1 right forearm. Medication Ordered: Ativan IV 0.5 mg (NOW) (Sched q5m for X2); Routine 1 of 2. Given 17:22 07/05/2016 Vanessa Diaz R.N. Medication Administered: ATIVAN [IVP] (LORAZEPAM), Dose: 0.5 mg IVP over 1 minute(s), Site: #1 right forearm. Medication Ordered: Ativan IV 0.5 mg (NOW) (Sched q5m for X2); Routine 2 of 2. Start 18:55 07/05/2016 Vanessa Diaz R.N., Stop 19:15 07/05/2016 Vanessa Diaz R.N. Medication Administered: ROCEPHIN [IVPB] (CEFTRIAXONE SODIUM), Dose: 2 gm IVPB over 20 minute(s), Rate: 150 mL/hr, Dispensed: 50 mL bag, Site: #1 right forearm. Medication Ordered: Rocephin IV 2 gm/50mL (for UTI). Given 20:37 07/05/2016 JoeVanessa RJuan JoseN. Medication Administered: DECADRON [IVP], Dose: 4 mg IVP over 1 minute(s), Site: #1 right forearm. Medication Ordered: Decadron IV 4 mg (NOW).
--- NOTE | 2016-07-13 08:40 | ED DISCHARGE INSTRUCTIONS ---
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 INSTRUCTIONS Warnings: Further evaluation is necessary. GENERAL WARNINGS: Return or contact your physician immediately if your condition worsens or changes unexpectedly, if not improving as expected, or if other problems arise. Your Current Medications: CONTINUE TAKING THE FOLLOWING MEDICATIONS: Dilaudid Oral : Tablet 2 mg, 2 tablets BID, Last: 0800, general muscle. Excedrin Extra Strength Oral : bid. Prescription Medications: Decadron 4 mg: take 1 orally every 6 hours for 5 days. Dispense twenty (20). No refill. Substitution is permissible. Understanding of the discharge instructions verbalized by patient and family. Discharge instructions reviewed with and understanding was verbalized by spouse. Follow-up with: Esteban Oviedo MD, Oncology, , [facility], [address] [place] [address] Follow up Sunday in two days. Call for the next available appointment. ADDITIONAL INFORMATION Dexamethasone Oral tablet What is this medicine? DEXAMETHASONE (dex a METH a sone) is a corticosteroid. It is commonly used to treat inflammation of the skin, joints, lungs, and other organs. Common conditions treated include asthma, allergies, and arthritis. It is also used for other conditions, such as blood disorders and diseases of the adrenal glands. How should I use this medicine? Take this medicine by mouth with a drink of water. Follow the directions on the prescription label. Take it with food or milk to avoid stomach upset. If you are taking this medicine once a day, take it in the morning. Do not take more medicine than you are told to take. Do not suddenly stop taking your medicine because you may develop a severe reaction. Your doctor will tell you how much medicine to take. If your doctor wants you to stop the medicine, the dose may be slowly lowered over time to avoid any side effects. Talk to your systems admin regarding the use of this medicine in children. Special care may be needed. Patients over 65 years old may have a stronger reaction and need a smaller dose. What side effects may I notice from receiving this medicine? Side effects that you should report to your doctor or health nurse care manager as soon as possible: allergic reactions like skin rash, itching or hives, swelling of the face, lips, or tongue changes in vision fever, sore throat, sneezing, cough, or other signs of infection, wounds that will not heal increased thirst mental depression, mood swings, mistaken feelings of self importance or of being mistreated pain in hips, back, ribs, arms, shoulders, or legs redness, blistering, peeling or loosening of the skin, including inside the mouth trouble passing urine or change in the amount of urine swelling of feet or lower legs unusual bleeding or bruising Side effects that usually do not require medical attention (report to your doctor or health nurse care manager if they continue or are bothersome): headache nausea, vomiting skin problems, acne, thin and shiny skin weight gain What may interact with this medicine? Do not take this medicine with any of the following medications: mifepristone, RU-486 vaccines This medicine may also interact with the following medications: amphotericin B antibiotics like clarithromycin, erythromycin, and troleandomycin aspirin and aspirin-like drugs barbiturates like phenobarbital carbamazepine cholestyramine cholinesterase inhibitors like donepezil, galantamine, rivastigmine, and tacrine cyclosporine digoxin diuretics ephedrine female hormones, like estrogens or progestins and control pills indinavir isoniazid ketoconazole medicines for diabetes medicines that improve muscle tone or strength for conditions like myasthenia gravis NSAIDs, medicines for pain and inflammation, like ibuprofen or naproxen phenytoin rifampin thalidomide warfarin What if I miss a dose? If you miss a dose, take it as soon as you can. If it is almost time for your next dose, talk to your doctor or health nurse care manager. You may need to miss a dose or take an extra dose. Do not take double or extra doses without advice. Where should I keep my medicine? Keep out of the reach of children. Store at room temperature between 20 and 25 degrees C (68 and 77 degrees F). Protect from light. Throw away any unused medicine after the expiration date. What should I tell my health care provider before I take this medicine? They need to know if you have any of these conditions: Ivis's syndrome diabetes glaucoma heart problems or disease high blood pressure infection like herpes, measles, tuberculosis, or chickenpox kidney disease liver disease mental problems myasthenia gravis osteoporosis previous heart attack seizures stomach, ulcer or intestine disease including colitis and diverticulitis thyroid problem an unusual or allergic reaction to dexamethasone, corticosteroids, other medicines, lactose, foods, dyes, or preservatives or trying to get breast-feeding What should I watch for while using this medicine? Visit your doctor or health nurse care manager for regular checks on your progress. If you are taking this medicine over a prolonged period, carry an identification card with your name and address, the type and dose of your medicine, and your doctor's name and address. This medicine may increase your risk of getting an infection. Stay away from people who are sick. Tell your doctor or health nurse care manager if you are around anyone with measles or chickenpox. If you are going to have surgery, tell your doctor or health nurse care manager that you have taken this medicine within the last twelve months. Ask your doctor or health nurse care manager about your diet. You may need to lower the amount of salt you eat. The medicine can increase your blood sugar. If you are a diabetic check with your doctor if you need help adjusting the dose of your diabetic medicine. You have been given the following additional information: Dexamethasone Oral tablet (Electronically signed by Feroz Gallo MD 07/07/2016 18:58)
--- NOTE | 2016-07-13 08:40 | ED MED RECONCILIATION SUMMARY ---
Patient: MARIA C ORO Medication Reconciliation Report [facility] VisitID: [id number] [address] [place] [address] 66y, F Registration Date/Time: 07/05/2016 Weight: 56.6 kg Height/Length: 62 in. BMI: 22.8 ALLERGIES: STEROIDS The patient's Home Medications are listed below: CONTINUE TAKING THE FOLLOWING MEDICATIONS: Dilaudid Oral (2 mg) 2 tablets, BID, last dose: 0800, general muscle Excedrin Extra Strength Oral bid The source(s) of the original Home Medication information: Not obtained. The following Medications were given to the patient in the Emergency Department: IV NS IV Fluids bolus 500 mL over 30 minute(s), then 250 mL/hr, administered: 07/05/2016 2:50:00 PM Decadron [IVP] IVP 4 mg, administered: 07/05/2016 3:10:00 PM Ativan [IVP] IVP 0.5 mg, administered: 07/05/2016 4:45:00 PM Ativan [IVP] IVP 0.5 mg, administered: 07/05/2016 5:22:00 PM Rocephin [IVPB] IVPB bolus 0, then 2 gm 150 mL/hr, administered: 07/05/2016 6:55:00 PM Decadron [IVP] IVP 4 mg, administered: 07/05/2016 8:37:00 PM The following Medications were prescribed to the patient: Decadron 4 mg: take 1 orally every 6 hours for 5 days. Dispense twenty (20). No refill. Substitution is permissible. -- Feroz Gallo MD
--- NOTE | 2016-07-13 08:40 | ED MED RECONCILIATION SUMMARY ---
Patient: MARIA C ORO Medication Reconciliation Report [facility] VisitID: [id number] [address] [place] [address] 66y, F Registration Date/Time: 07/05/2016 Weight: 56.6 kg Height/Length: 62 in. BMI: 22.8 ALLERGIES: STEROIDS The patient's Home Medications are listed below: CONTINUE TAKING THE FOLLOWING MEDICATIONS: Dilaudid Oral (2 mg) 2 tablets, BID, last dose: 0800, general muscle Excedrin Extra Strength Oral bid The source(s) of the original Home Medication information: Not obtained. The following Medications were given to the patient in the Emergency Department: IV NS IV Fluids bolus 500 mL over 30 minute(s), then 250 mL/hr, administered: 07/05/2016 2:50:00 PM Decadron [IVP] IVP 4 mg, administered: 07/05/2016 3:10:00 PM Ativan [IVP] IVP 0.5 mg, administered: 07/05/2016 4:45:00 PM Ativan [IVP] IVP 0.5 mg, administered: 07/05/2016 5:22:00 PM Rocephin [IVPB] IVPB bolus 0, then 2 gm 150 mL/hr, administered: 07/05/2016 6:55:00 PM Decadron [IVP] IVP 4 mg, administered: 07/05/2016 8:37:00 PM The following Medications were prescribed to the patient: Decadron 4 mg: take 1 orally every 6 hours for 5 days. Dispense twenty (20). No refill. Substitution is permissible. -- Feroz Gallo MD
== END 2016-07-05 20:50 | disposition home or self-care (01) ==
LOC: ED SRH 14:17
DX: H53.8 Other visual disturbances (principal); R26.81 Unsteadiness on feet; T45.1X5A Adverse effect of antineoplastic and immunosuppressive drugs, initial encounter; C34.90 Malignant neoplasm of unspecified part of unspecified bronchus or lung; F17.210 Nicotine dependence, cigarettes, uncomplicated
CPT/HCPCS: 85241; 90004; 90100; 90469; 90616; 91585; 92610; 92720; 93140; 95059; 95150

== ENCOUNTER 2016-11-06 07:39 | Day surgery (SDC) | payer OTHER ==
[~2016-11-06] VITALS: Ht 157.5 cm; Wt 49.6 kg
[~2016-11-06 07:39] MED LIST changes: +AMITRIPTYLINE H10 MG PO; +MESTINON60 MG PO; +ZOFRAN ODT4 MG PO
[2016-11-06 07:42] VITALS: BP 122/81
[2016-11-06] MEDS ORDERED: LEVAQUIN500 MG PO (11:11)
[2016-11-06] MEDS ORDERED: FLAGYL500 MG PO (11:12)
--- NOTE | 2016-11-06 11:14 | Provider's Discharge Care Plan ---
Problem, Goal, Plan Problem List 1. Diverticulitis Instructions: Pt. refuses admission and further testing as advised and chooses to leave on oral antibiotics and follow up as outpt.
== END 2016-11-06 12:10 | disposition home or self-care (01) ==
LOC: OR SRH 07:39 → SCU SRH 07:39 → OR SRH 10:00
DX: K62.3 Rectal prolapse (principal); K57.32 Diverticulitis of large intestine without perforation or abscess without bleeding; Z53.09 Procedure and treatment not carried out because of other contraindication
CPT/HCPCS: 29240